=== PATIENT | female | born 1960 | race Caucasian/White ===

== ENCOUNTER → 2017-06-30 | Outpatient (CLI) | payer OTHER ==
[~2017-06-30] MED LIST: AMX500 PO; CARB200T
[2017-06-30 11:01] LABS: ALT/SGPT 27 U/L (12-78); AST/SGOT 13 U/L (15-37); BLOOD UREA NITROGEN 9 mg/dl (7-18); BUN/CREATININE RATIO 12.6 (10-20); CALCIUM 9.2 mg/dl (8.5-10.1); CARBON DIOXIDE 27 mmol/L (21-32); CHLORIDE 103 mmol/L (98-107); CREATININE 0.68 mg/dl (0.60-1.20); GLUCOSE 219 mg/dl (70-99); POTASSIUM 4.1 mmol/L (3.5-5.1); SODIUM 136 mmol/L (136-145)
[2017-06-30 11:02] LABS: HEMATOCRIT 42.7 % (37-47); MEAN CELL VOLUME 84.2 fL (80-100); MEAN CORPUSCULAR HEMOGLOBIN 28.8 pg (25-34); MEAN CORPUSCULAR HGB CONC 34.2 g/dl (32-36); PLATELET COUNT 365 K/uL (130-400); RED BLOOD COUNT 5.07 M/uL (4.2-5.4); WHITE BLOOD COUNT 9.48 K/uL (4.8-10.8)
[2017-06-30 11:03] LABS: ALB/GLOB RATIO 0.8 (0.9-2); ALKALINE PHOSPHATASE 87 U/L (45-117)
[2017-06-30 12:28] LABS: BASO ABS # 0.09 K/uL (0-0.2); BASOPHIL % 0.9 %; COMPLETE YES; EOSINOPHIL % 0.9 %; LYMPHOCYTE % 21.1 %; NEUTROPHILS % 70.1 %
== END | disposition home or self-care (01) ==
LOC: C.LAB1850 09:24
PROVIDERS: ATTEND Psychiatry & Neurology Neurology
DX: G40.909 Epilepsy, unspecified, not intractable, without status epilepticus (principal)

== ENCOUNTER → 2018-01-26 | Outpatient (CLI) | payer OTHER ==
[2018-01-26 14:37] LABS: HEMOGLOBIN 14.5 g/dL (12.0-16.0)
[2018-01-26 14:47] LABS: ALBUMIN 3.7 gm/dl (3.4-5.0); ALT/SGPT 28 U/L (12-78); AST/SGOT 7 U/L (15-37); BLOOD UREA NITROGEN 11 mg/dl (7-18); CALCIUM 9.3 mg/dl (8.5-10.1); CARBON DIOXIDE 29 mmol/L (21-32); CREATININE 0.72 mg/dl (0.60-1.20); GLUCOSE 324 mg/dl (70-99); POTASSIUM 4.1 mmol/L (3.5-5.1); SODIUM 132 mmol/L (136-145)
[2018-01-26 14:50] LABS: CHOLESTEROL 204 mg/dl (0-200); LDL CHOLESTEROL CALCULATED 102 mg/dl; TOTAL PROTEIN 8.1 gm/dl (6.4-8.2)
[2018-01-26 15:07] LABS: ALKALINE PHOSPHATASE 101 U/L (45-117)
[2018-01-26 15:57] LABS: CREATININE RANDOM URINE 58.6 mg/dl
[2018-01-27 06:28] LABS: HEMOGLOBIN A1C 12.9 % (4.5-5.6)
== END | disposition home or self-care (01) ==
LOC: C.LAB1850 12:42
PROVIDERS: ATTEND Nurse Practitioner Adult Health
DX: E11.9 Type 2 diabetes mellitus without complications (principal); E78.5 Hyperlipidemia, unspecified; E66.9 Obesity, unspecified

== ENCOUNTER 2024-01-19 11:49 | Observation (INO) ==
[2024-01-19 12:34] LABS: Basophils # (auto) 0.05 K/uL (0.00-0.20); Basophils % (auto) 0.5 %; Eosinophils # (auto) 0.11 K/uL (0.00-0.50); Hematocrit (blood only) 43.2 % (37.0-47.0); Hemoglobin 14.1 g/dl (12.0-16.0); Immature Granulocytes # (auto) 0.05 K/uL (0.01-0.20); Immature Granulocytes % (auto) 0.5 %; Lymphocytes # (auto) 2.12 K/uL (1.20-3.40); Lymphocytes % (auto) 19.8 %; Mean Corpuscular Hemoglobin 28.5 pg (25.0-34.0); Mean Corpuscular Hgb Conc 32.6 g/dL (32.0-36.0); Mean Corpuscular Volume 87.4 fL (80.0-100.0); Mean Platelet Volume 10.5 fL (9.4-12.4); Monocytes # (auto) 0.66 K/uL (0.11-0.59); Monocytes % (auto) 6.2 %; Neutrophils # (auto) 7.72 K/uL (1.40-6.50); Platelet Count 363 K/uL (130-400); RDW Coefficient of Variation 12.2 % (11.5-14.5); Red Blood Count 4.94 M/uL (4.20-5.40); White Blood Count 10.71 K/ul (4.8-10.8)
--- NOTE | 2024-01-19 12:52 | CT Scan Report ---
CT head/brain wo con CLINICAL HISTORY: 63 years-old Female with HTN, ANDERSON, ?Stroke like symptoms. Acute headache with strok elike symptoms TECHNIQUE: Multiple axial CT images of the head were obtained without contrast. A dose lowering tech nique was utilized adhering to the principles of ALARA. CT DOSE: 547.75 mGy.cm COMPARISON: 11/13/2006 FINDINGS: No acute intracranial hemorrhage, midline shift, intracranial mass, hydrocephalus, territorial ischem ia or abnormal extra-axial collection. Mild involutional changes with white matter hypodensities sugg estive of chronic microvascular ischemic disease. The calvarium is intact. Hyperostosis frontalis interna. The paranasal sinuses, mastoid air cells, an d middle ear cavities are clear. IMPRESSION: No acute intracranial abnormality. ACT 112: Negative or not required by law. The above report was generated using voice recognition software. It may contain grammatical, syntax o r spelling errors. Electronically signed by: Brown Deng M.D. 01/19/2024 12:51 PM
--- NOTE | 2024-01-19 12:58 | XRay Report ---
XR chest 1V portable HISTORY: Hypertension. COMPARISON: None. FINDINGS: There are low lung volumes. The cardiac silhouette is borderline enlarged. Left basilar andreas ear densities favor subsegmental atelectasis or scarring. Otherwise, the lungs are clear. No evidence for pulmonary edema. No acute fractures. IMPRESSION: No acute process. ACT 112: Negative or not required by law. Electronically signed by: Rufus France M.D. 01/19/2024 12:56 PM
[2024-01-19 13:01] LABS: Albumin Globulin Ratio 1.2 (0.9-2); Albumin Level 4.2 gm/dl (3.4-5.0); BUN Creatinine Ratio 18.6 (10-20); Bilirubin,Total 0.3 mg/dl (0.2-1.0); Calcium 9.4 mg/dl (8.6-10.3); Creatinine Clr Calc Pharmacy 100.5 ml/min; Est GFR (African American) 107.6 ml/min; Est GFR (Non-African American) 92.9 ml/min; Globulin 3.5 gm/dl (2.5-4.0); INR 0.9 (0.9-1.1); Partial Thromboplastin Ratio 0.9; Partial Thromboplastin Time 25 Seconds (21-31); Potassium 4.5 mmol/L (3.5-5.1); Prothrombin Time 10.3 Seconds (9.0-12.0); Total Protein 7.7 gm/dl (6.0-8.3)
--- NOTE | 2024-01-19 14:04 | Emergency Department Note ---
Impression & Plan Stroke-like symptoms ED Provider Note NAME: PEACE ENAMORADO AGE: 63 SEX: Female INFORMANT: Patient ED PROVIDER(S): John Santamaria MD CHIEF COMPLAINT: Strokelike symptoms PLAN: Disposition: Admitted Outpatient prescription management: none Referral: None MEDICAL DECISION MAKING: Patient presented because of strokelike symptoms. Workup was initiated. Head CT and laboratory testing was unremarkable. ECG was normal. Patient had subtle findings on examination. CT angiography of the head and neck was also performed. This too was negative. Patient's blood pressure was moderately elevated but then did improve. Patient was given aspirin. She will need further management in the hospital to further elucidate the etiology of the strokelike symptoms. Patient is not within the window for thrombolytic consideration. MR imaging was ordered with and without contrast. Consultation was made with Dr. Paul Sams of the [facility] service. Patient was evaluated in the ER for further management. Care/management discussed with: hardware manager Level of care consideration(s): After review of the information above and other included data, I feel the patient requires escalation of care to admission Triage Nursing notes: reviewed and agree them. Vital Signs: reviewed and remarkable for hypertension Additional History obtained from: none Chronic Medical/Social Conditions affecting care: Diabetes Prior/ Outside/ External records reviewed: none Differential Diagnosis: CVA, TIA,Infection, dehydration, metabolic abnormality, hypo/hyperglycemia, electrolyte disturbance, anemia, hypoxia, cardiac sources, intracerebral event, toxicologic, neurologic, as well as other pathologies. Diagnostics, independently interpreted by me: ECG: Twelve-lead ECG reveals a normal sinus rhythm at [address] elevation or depression. No PACs or PVCs. Cardiac Monitoring: Cardiac monitoring ordered by me: The patient was placed on continuous cardiac monitoring and observed. It revealed a normal sinus rhythm at 81 beats per minute without ectopy or evidence of dysrhythmia. Medical decision rules: none Imaging studies: Head CT: A noncontrast CT scan of the head was performed and was negative for tumor, fracture, intracranial hemorrhage, or other acute pathology. Chest x-ray. Findings: A chest x-ray was performed and revealed no pneumothorax, effusion, infiltrate, pulmonary edema, free air under the diaphragm, or wide mediastinum. Impression: No acute disease.I refer you to the EMR for further details. HPI: 63 year old Female arrives for evaluation of stroke like symptoms. This started yesterday and is worsening today. The patient also notes the following associated symptoms, fogginess, difficulty speaking, dexterity problems with typing and writing. Patient states she was unable to type on a keyboard today and also noted that writing was extremely difficult. The patient has taken no medication for relieving factors. Current pain is rated as 0/10. Pt denies LOC, headache, fevers, chills, diaphoresis, visual changes, neck pain, chest pain, breathing difficulties, nausea, vomiting, abdominal pain, back pain, melena, hematochezia, urinary symptoms, numbness, weakness, lymphadenopathy, rash, or other complaints. . PAST MEDICAL HISTORY: See Below, DM PAST SURGICAL HISTORY: See Below, SOCIAL HISTORY: See Below, no smoking HOME MEDICATIONS: See Below ALLERGIES: See Below VITALS: See Below PHYSICAL EXAMINATION: GENERAL: Awake, alert, well-appearing, in no distress HENT: Normocephalic, atraumatic. Oropharynx unremarkable. EYES: Normal conjunctiva. Sclera non-icteric. NECK: Inspection normal. Non-tender. Supple. No nuchal rigidity. FROM. No masses. RESPIRATORY: Clear to auscultation. No wheezes. No rales. Normal respiratory effort. CARDIAC: Normal rate. Normal rhythm. No murmurs. No rubs. Extremities warm and well perfused. Pulses equal. No JVD. GI: Soft, non-distended. No tenderness to palpation. No rebound or guarding. No masses. RECTAL: Deferred. MUSCULOSKELETAL: Atraumatic. Chest examination reveals no tenderness. The back is symmetrical on inspection without obvious abnormality. There is no CVA tenderness to palpation. No joint edema. LOWER EXTREMITIES: Calves are equal size bilaterally and non-tender. No edema. No discoloration. NEURO: Normal sensorium. No sensory or motor deficits noted. SKIN: No rash or jaundice noted. PROCEDURES: none CRITICAL CARE: none OBSERVATION NOTE: none Past Med/Surg History Medical History (Updated 01/19/24 @ 14:04 by John Santamaria MD) Complex renal cyst US [address] 07/2020, CT Renal ordered 05/2023. No change. no further testing Gastritis Chronic back pain MID/LEFT BACK PAIN Cyst FOUND ON KIDNEY (RECENT FINDING) History of skin cancer History of herpes zoster Hyperlipidemia Seizure disorder EPILEPSY-LAST EVENT OVER 16 YEARS AGO Surgical History History of anesthesia reaction WITH HOLGER>DIFFICULTY BREATHING RESULTING IN A PANIC ATTACK History of tooth extraction Hx of tonsillectomy History of cholecystectomy Family History Father Prostate cancer Family history of diabetes mellitus Mother Family history of diabetes mellitus Other No significant family history Denies family history of Ovarian cancer Myocardial infarction Breast cancer Colorectal cancer Social History Smoking Status: Never smoker Second Hand Exposure: No; Do You Dip or Chew Tobacco: No; Hx Alcohol Use: Yes Alcohol type: wine Alcohol Intake Frequency Comment: Occasional Hx Substance Use: No Preferred Language: Gambian Visual Impairment: Diminished Hearing Ability: Normal 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 Beliefs That Will Affect Care: None marital status: marrried Current Living Situation: Spouse current occupational status: employed How many Children do You have: 2 Feels Safe at Home: Yes Childhood Exposure to Second-Hand Smoke: No caffeine: Yes Dental Care, Regularly: Yes Physical Activity Frequency: 5-6 Times per Week Seatbelt Use: always Sunscreen Use: Yes Assistive Devices: Glasses Allergies Allergies Allergy/AdvReac Type Severity Reaction Status Date / Time No Known Allergies Allergy Mild Verified 01/19/24 13:31 Home Meds Home Medications Medication Instructions Recorded Confirmed cyanocobalamin (vitamin B-12) 1,000 mcg PO DAILY #30 tabs 09/09/19 01/19/24 1,000 mcg tablet,extended release acetaminophen 325 mg tablet 650 mg PO QID PRN Pain 08/02/20 01/19/24 (Tylenol) cholecalciferol (vitamin D3) 125 125 mcg PO DAILY 01/01/22 01/19/24 mcg (5,000 unit) capsule blood sugar diagnostic ([email or web address] #10 ea 01/07/23 05/14/23 Ultra Blue Test Strip) flash glucose sensor (FreeStyle 01/07/23 05/14/23 Brianda 2 Sensor kit) lancets 33 gauge (OneTouch Delica 01/07/23 05/14/23 Lancets) dulaglutide 4.5 mg/0.5 mL 4.5 mg subcut WK 01/19/24 01/19/24 subcutaneous pen injector (Trulicity) insulin aspart U-100 100 unit/mL 0 sliding scale dose subcut TIDM 01/19/24 01/19/24 (3 mL) subcutaneous pen (Novolog FlexPen U-100 Insulin aspart) Previous Rx's Medication Instructions Recorded pen needle, diabetic 32 gauge x #400 ea 08/12/22 1/4" (Novofine 32) carbamazepine 200 mg 200 mg PO BID #180 caps 01/26/23 capsule,extended release [id number] metformin 1,000 mg tablet 1,000 mg PO BID #180 tabs 07/28/23 insulin glargine U-300 conc 300 54 unit (0.18 mL) subcut DAILY #6 08/11/23 unit/mL (3 mL) subcutaneous pen mL (Toujeo Max U-300 SoloStar) simvastatin 40 mg tablet 40 mg PO DAILY #30 tabs 11/28/23 Results & Data (ED) Vital Signs Vital Signs - 24 hr 01/19/24 12:00 01/19/24 12:06 01/19/24 12:34 Temperature 36.7 C Temperature Source Oral Pulse Rate 90 80 Pulse Rate [Apical] Pulse Rate from SpO2 Sensor Pulse Rhythm Regular Pulse Rhythm [Apical] Pulse Strength Normal Pulse Strength [Apical] Respiratory Rate 18 Respiratory Effort / Characteristics Non-Labored Spontaneous Respiratory Depth Normal Respiratory Pattern Regular Blood Pressure 167/89 H 193/96 H Blood Pressure [Right Arm] Blood Pressure Mean 115 152 Blood Pressure Mean [Right Arm] Blood Pressure Position Lying Pulse Oximetry 98 Oxygen Delivery Method Room Air Sepsis Recent Fever Within 48 Hours No Sepsis New/Unexplained Change in Mental Status No Sepsis Action Taken by Nursing No Action Required 01/19/24 12:34 01/19/24 12:53 01/19/24 13:00 Temperature Temperature Source Pulse Rate 85 Pulse Rate [Apical] 79 Pulse Rate from SpO2 Sensor 84 Pulse Rhythm Pulse Rhythm [Apical] Regular Pulse Strength Pulse Strength [Apical] Normal Respiratory Rate 22 18 Respiratory Effort / Characteristics Non-Labored Spontaneous Respiratory Depth Normal Respiratory Pattern Regular Blood Pressure 157/95 H Blood Pressure [Right Arm] 171/84 H Blood Pressure Mean 124 Blood Pressure Mean [Right Arm] 113 Blood Pressure Position Pulse Oximetry 94 98 Oxygen Delivery Method Room Air Sepsis Recent Fever Within 48 Hours Sepsis New/Unexplained Change in Mental Status Sepsis Action Taken by Nursing 01/19/24 13:00 01/19/24 13:21 01/19/24 13:22 Temperature Temperature Source Pulse Rate 78 79 Pulse Rate [Apical] Pulse Rate from SpO2 Sensor 79 80 Pulse Rhythm Pulse Rhythm [Apical] Pulse Strength Pulse Strength [Apical] Respiratory Rate 22 14 Respiratory Effort / Characteristics Respiratory Depth Respiratory Pattern Blood Pressure 173/90 H Blood Pressure [Right Arm] Blood Pressure Mean 123 Blood Pressure Mean [Right Arm] Blood Pressure Position Pulse Oximetry 95 96 Oxygen Delivery Method Sepsis Recent Fever Within 48 Hours Sepsis New/Unexplained Change in Mental Status Sepsis Action Taken by Nursing 01/19/24 13:22 01/19/24 13:30 01/19/24 13:30 Temperature Temperature Source Pulse Rate 77 80 Pulse Rate [Apical] Pulse Rate from SpO2 Sensor 78 80 Pulse Rhythm Pulse Rhythm [Apical] Pulse Strength Pulse Strength [Apical] Respiratory Rate 14 16 Respiratory Effort / Characteristics Respiratory Depth Respiratory Pattern Blood Pressure 164/87 H Blood Pressure [Right Arm] Blood Pressure Mean 115 Blood Pressure Mean [Right Arm] Blood Pressure Position Pulse Oximetry 94 93 Oxygen Delivery Method Room Air Sepsis Recent Fever Within 48 Hours Sepsis New/Unexplained Change in Mental Status Sepsis Action Taken by Nursing 01/19/24 13:45 01/19/24 14:00 01/19/24 14:01 Temperature Temperature Source Pulse Rate 88 76 Pulse Rate [Apical] Pulse Rate from SpO2 Sensor 86 76 Pulse Rhythm Pulse Rhythm [Apical] Pulse Strength Pulse Strength [Apical] Respiratory Rate 17 22 Respiratory Effort / Characteristics Respiratory Depth Respiratory Pattern Blood Pressure 181/88 H Blood Pressure [Right Arm] Blood Pressure Mean 93 Blood Pressure Mean [Right Arm] Blood Pressure Position Pulse Oximetry 93 95 Oxygen Delivery Method Room Air Room Air Sepsis Recent Fever Within 48 Hours Sepsis New/Unexplained Change in Mental Status Sepsis Action Taken by Nursing 01/19/24 14:01 01/19/24 14:15 01/19/24 14:15 Temperature Temperature Source Pulse Rate 87 84 Pulse Rate [Apical] Pulse Rate from SpO2 Sensor 86 84 Pulse Rhythm Pulse Rhythm [Apical] Pulse Strength Pulse Strength [Apical] Respiratory Rate 14 13 Respiratory Effort / Characteristics Respiratory Depth Respiratory Pattern Blood Pressure 147/73 H Blood Pressure [Right Arm] Blood Pressure Mean 88 Blood Pressure Mean [Right Arm] Blood Pressure Position Pulse Oximetry 97 93 Oxygen Delivery Method Sepsis Recent Fever Within 48 Hours Sepsis New/Unexplained Change in Mental Status Sepsis Action Taken by Nursing 01/19/24 14:30 01/19/24 14:32 01/19/24 14:32 Temperature Temperature Source Pulse Rate 84 79 Pulse Rate [Apical] Pulse Rate from SpO2 Sensor 87 80 Pulse Rhythm Pulse Rhythm [Apical] Pulse Strength Pulse Strength [Apical] Respiratory Rate 23 24 Respiratory Effort / Characteristics Respiratory Depth Respiratory Pattern Blood Pressure 155/70 H Blood Pressure [Right Arm] Blood Pressure Mean 81 Blood Pressure Mean [Right Arm] Blood Pressure Position Pulse Oximetry 97 97 Oxygen Delivery Method Room Air Room Air Sepsis Recent Fever Within 48 Hours Sepsis New/Unexplained Change in Mental Status Sepsis Action Taken by Nursing 01/19/24 14:45 01/19/24 15:00 01/19/24 15:00 Temperature Temperature Source Pulse Rate 82 87 Pulse Rate [Apical] Pulse Rate from SpO2 Sensor 83 87 Pulse Rhythm Pulse Rhythm [Apical] Pulse Strength Pulse Strength [Apical] Respiratory Rate 17 17 Respiratory Effort / Characteristics Respiratory Depth Respiratory Pattern Blood Pressure 153/113 H Blood Pressure [Right Arm] Blood Pressure Mean 119 Blood Pressure Mean [Right Arm] Blood Pressure Position Pulse Oximetry 94 94 Oxygen Delivery Method Room Air Room Air Sepsis Recent Fever Within 48 Hours Sepsis New/Unexplained Change in Mental Status Sepsis Action Taken by Nursing 01/19/24 15:30 01/19/24 15:45 01/19/24 16:00 Temperature Temperature Source Pulse Rate 85 78 Pulse Rate [Apical] Pulse Rate from SpO2 Sensor 86 78 Pulse Rhythm Pulse Rhythm [Apical] Pulse Strength Pulse Strength [Apical] Respiratory Rate 13 15 Respiratory Effort / Characteristics Respiratory Depth Respiratory Pattern Blood Pressure 159/80 H Blood Pressure [Right Arm] Blood Pressure Mean 117 Blood Pressure Mean [Right Arm] Blood Pressure Position Pulse Oximetry 95 94 Oxygen Delivery Method Room Air Sepsis Recent Fever Within 48 Hours Sepsis New/Unexplained Change in Mental Status Sepsis Action Taken by Nursing 01/19/24 16:00 01/19/24 16:15 01/19/24 16:30 Temperature Temperature Source Pulse Rate 86 76 Pulse Rate [Apical] Pulse Rate from SpO2 Sensor 84 78 Pulse Rhythm Pulse Rhythm [Apical] Pulse Strength Pulse Strength [Apical] Respiratory Rate 14 15 Respiratory Effort / Characteristics Respiratory Depth Respiratory Pattern Blood Pressure 182/98 H Blood Pressure [Right Arm] Blood Pressure Mean 120 Blood Pressure Mean [Right Arm] Blood Pressure Position Pulse Oximetry 94 96 Oxygen Delivery Method Room Air Room Air Sepsis Recent Fever Within 48 Hours Sepsis New/Unexplained Change in Mental Status Sepsis Action Taken by Nursing 01/19/24 16:30 01/19/24 16:45 01/19/24 17:00 Temperature Temperature Source Pulse Rate 83 80 Pulse Rate [Apical] Pulse Rate from SpO2 Sensor 82 79 Pulse Rhythm Pulse Rhythm [Apical] Pulse Strength Pulse Strength [Apical] Respiratory Rate 13 17 Respiratory Effort / Characteristics Respiratory Depth Respiratory Pattern Blood Pressure 188/105 H Blood Pressure [Right Arm] Blood Pressure Mean 135 Blood Pressure Mean [Right Arm] Blood Pressure Position Pulse Oximetry 93 97 Oxygen Delivery Method Room Air Room Air Sepsis Recent Fever Within 48 Hours Sepsis New/Unexplained Change in Mental Status Sepsis Action Taken by Nursing 01/19/24 17:00 01/19/24 17:15 Temperature Temperature Source Pulse Rate 77 81 Pulse Rate [Apical] Pulse Rate from SpO2 Sensor Pulse Rhythm Pulse Rhythm [Apical] Pulse Strength Pulse Strength [Apical] Respiratory Rate 18 11 L Respiratory Effort / Characteristics Respiratory Depth Respiratory Pattern Blood Pressure Blood Pressure [Right Arm] Blood Pressure Mean Blood Pressure Mean [Right Arm] Blood Pressure Position Pulse Oximetry Oxygen Delivery Method Sepsis Recent Fever Within 48 Hours Sepsis New/Unexplained Change in Mental Status Sepsis Action Taken by Nursing Laboratory Data 01/19/24 12:10 01/19/24 12:10 Lab Results 01/19/24 Range/Units 12:10 WBC 10.71 (4.8-10.8) K/ul RBC 4.94 (4.20-5.40) M/uL Hgb 14.1 (12.0-16.0) g/dl Hct 43.2 (37.0-47.0) % MCV 87.4 (80.0-100.0) fL MCH 28.5 (25.0-34.0) pg MCHC 32.6 (32.0-36.0) g/dL RDW Std Deviation 39.0 (36.4-46.3) fL RDW Coeff of Bladimir 12.2 (11.5-14.5) % Plt Count 363 (130-400) K/uL MPV 10.5 (9.4-12.4) fL Immature Gran % (Auto) 0.5 % Neut % (Auto) 72.0 % Lymph % (Auto) 19.8 % Calvert % (Auto) 6.2 % Eos % (Auto) 1.0 % Baso % (Auto) 0.5 % Neut # (Auto) 7.72 H (1.40-6.50) K/uL Lymph # (Auto) 2.12 (1.20-3.40) K/uL Calvert # (Auto) 0.66 H (0.11-0.59) K/uL Eos # (Auto) 0.11 (0.00-0.50) K/uL Baso # (Auto) 0.05 (0.00-0.20) K/uL Immature Gran # (Auto) 0.05 (0.01-0.20) K/uL PT 10.3 (9.0-12.0) Seconds INR 0.9 (0.9-1.1) APTT 25 (21-31) Seconds PTT Ratio 0.9 Sodium 137 (136-145) mmol/L Potassium 4.5 (3.5-5.1) mmol/L Chloride 101 (98-107) mmol/L Carbon Dioxide 28 (21-32) mmol/L Anion Gap 8 (3-11) BUN 13 (6-23) mg/dl Creatinine 0.70 (0.6-1.2) mg/dl Est Cr Clr Drug Dosing 100.5 ml/min Est GFR ( Amer) 107.6 ml/min Est GFR (Non-Af Amer) 92.9 ml/min BUN/Creatinine Ratio 18.6 (10-20) Glucose 229 H (70-99(Fasting)) mg/dl Calcium 9.4 (8.6-10.3) mg/dl Total Bilirubin 0.3 (0.2-1.0) mg/dl AST 10 L (13-39) U/L ALT 17 (7-52) U/L Alkaline Phosphatase 79 (34-104) U/L Troponin I High Sens 5.9 (0-14) pg/ml Total Protein 7.7 (6.0-8.3) gm/dl Albumin 4.2 (3.4-5.0) gm/dl Globulin 3.5 (2.5-4.0) gm/dl Albumin/Globulin Ratio 1.2 (0.9-2) Administered Medications Discontinued Medications Aspirin (Aspirin Chew 324 Mg) 324 mg PO NOW STA Stop: 01/19/24 16:12 Last Admin: 01/19/24 16:16 Dose: 324 mg Documented By: MIGUEL Ioversol (Optiray 320 125ml) 116 ml IV ONCE ONE Stop: 01/19/24 14:31 Last Admin: 01/19/24 14:30 Dose: 116 ml Documented By: [facility] Imaging Data Radiologist's Impression: Chest X-Ray 01/19/24 12:09 XR chest 1V portable HISTORY: Hypertension. COMPARISON: None. FINDINGS: There are low lung volumes. The cardiac silhouette is borderline enlarged. Left basilar linear densities favor subsegmental atelectasis or scarring. Otherwise, the lungs are clear. No evidence for pulmonary edema. No acute fractures. IMPRESSION: No acute process. ACT 112: Negative or not required by law. Electronically signed by: Rufus France M.D. 01/19/2024 12:[address] 01/19/24 12:09 CT head/brain wo con CLINICAL HISTORY: 63 years-old Female with HTN, ANDERSON, ?Stroke like symptoms. Acute headache with strokelike symptoms TECHNIQUE: Multiple axial CT images of the head were obtained without contrast. A dose lowering technique was utilized adhering to the principles of ALARA. CT DOSE: 547.75 mGy.cm COMPARISON: 11/13/2006 FINDINGS: No acute intracranial hemorrhage, midline shift, intracranial mass, hydrocephalus, territorial ischemia or abnormal extra-axial collection. Mild involutional changes with white matter hypodensities suggestive of chronic microvascular ischemic disease. The calvarium is intact. Hyperostosis frontalis interna. The paranasal sinuses, mastoid air cells, and middle ear cavities are clear. IMPRESSION: No acute intracranial abnormality. ACT 112: Negative or not required by law. The above report was generated using voice recognition software. It may contain grammatical, syntax or spelling errors. Electronically signed by: Brown Deng M.D. 01/19/2024 12:51 PM Head CTA 01/19/24 14:04 CTA ANGIOGRAPHY OF THE HEAD CLINICAL HISTORY: stroke like symptoms COMPARISON STUDY: Head CT November 13, 2006. TECHNIQUE: Helical axial images of the head were obtained following uneventful intravenous administration of 116 cc of Optiray. Sagittal and coronal reconstructions were viewed as well as maximal intensity projections on an independent 3-D workstation. Automated exposure control was utilized for the study. A dose lowering technique was utilized adhering to the principles of ALARA. CT DOSE: 545.63 mGy.cm FINDINGS: No acute intracranial hemorrhage is identified. The ventricular system is unremarkable. Basal cisterns are patent. There are no extra axial collections. The bilateral M1, M2, A1 and A2 segments are patent. No intracranial aneurysm. No vessel occlusion is present. Posterior circulation is intact. IMPRESSION: No central vessel occlusion. No intracranial aneurysm. ACT 112: Negative or not required by law. Electronically signed by: Piyush Rodriguez M.D. 01/19/2024 2:51 PM Neck CTA 01/19/24 14:04 NECK CTA HISTORY: stroke like symptoms TECHNIQUE: Multiaxial CT images of the neck were performed following the intravenous administration of contrast to evaluate the major cervical vessels. 3D/MIP images were also obtained. Sagittal and coronal reformats were reviewed. All measurements were calculated based on NASCET criteria. A dose lowering technique was utilized adhering to the principles of ALARA. COMPARISON STUDY: None. FINDINGS: The aortic arch and proximal great vessels are widely patent. There is no significant stenosis, occlusion, or dissection identified within the bilateral common carotid, internal carotid, or vertebral arteries. Mild calcified plaque within the left carotid bulb. IMPRESSION: No significant stenosis, occlusion, or dissection identified within the carotid or vertebral arteries. ACT 112: Negative or not required by law. Electronically signed by: Rufus France M.D. 01/19/2024 3:11 PM Discharge Plan Visit Data Chief Complaint: Hypertension Stated Complaint: HEADACHE ED Provider: John Santamaria Discharge Problem: Stroke-like symptoms Forms Stand Alone Forms: [facility] Prescriptions Prescriptions: No Action (DME) pen needle, diabetic [Novofine 32] 32 gauge x 1/4" needle See Dose Instructions .ROUTE .MEDSUPPLY Qty: 400 3RF Rx Instructions: Use four times daily metformin 1,000 mg tablet 1,000 mg PO BID Qty: 180 3RF Toujeo Max U-300 SoloStar 300 unit/mL (3 mL) insulin pen 54 unit subcut DAILY Qty: 6 5RF simvastatin 40 mg tablet 40 mg PO DAILY Qty: 30 5RF carbamazepine 200 mg capsule, ER multiphase 12 hr 200 mg PO BID Qty: 180 3RF cholecalciferol (vitamin D3) 125 mcg (5,000 unit) capsule 125 mcg PO DAILY cyanocobalamin (vitamin B-12) 1,000 mcg tablet extended release 1,000 mcg PO DAILY Qty: 30 (DME) OneTouch Ultra Blue Test Strip Strip See Rx Instructions .ROUTE .MEDSUPPLY Qty: 10 Rx Instructions: Test blood sugar once daily PRN (DME) FreeStyle Brianda 2 Sensor Kit See Rx Instructions .Route Rx Instructions: Change sensor every 14 days (DME) lancets [OneTouch Delica Lancets] 33 gauge misc See Rx Instructions .ROUTE .MEDSUPPLY Rx Instructions: Test blood sugar once daily PRN acetaminophen [Tylenol] 325 mg Tablet 650 mg PO QID PRN (Reason: Pain) insulin aspart U-100 [Novolog FlexPen U-100 Insulin] 100 unit/mL (3 mL) insulin pen 0 sliding scale dose SQ TIDM MDD 75 UNITS/24 HOURS. Rx Instructions: 75 units subcut inject daily with meals per sliding scale up to TDD 75 units; Trulicity 4.5 mg/0.5 mL pen injector 4.5 mg subcut WK Rx Instructions: MONDAYS Referrals Referrals: Mikael Harrington DO [Primary Care Provider] -
[2024-01-19] MEDS: OPTIRAY 320 125ml IV ONE (14:30)
[2024-01-19 14:51] LABS: Troponin I High Sensitivity 5.9 pg/ml (0-14)
--- NOTE | 2024-01-19 14:53 | CT Scan Report ---
CTA ANGIOGRAPHY OF THE HEAD CLINICAL HISTORY: stroke like symptoms COMPARISON STUDY: Head CT November 13, 2006. TECHNIQUE: Helical axial images of the head were obtained following uneventful intravenous administr ation of 116 cc of Optiray. Sagittal and coronal reconstructions were viewed as well as maximal inten sity projections on an independent 3-D workstation. Automated exposure control was utilized for the study. A dose lowering technique was utilized adhering to the principles of ALARA. CT DOSE: 545.63 mGy.cm FINDINGS: No acute intracranial hemorrhage is identified. The ventricular system is unremarkable. Bas al cisterns are patent. There are no extra axial collections. The bilateral M1, M2, A1 and A2 segment s are patent. No intracranial aneurysm. No vessel occlusion is present. Posterior circulation is inta ct. IMPRESSION: No central vessel occlusion. No intracranial aneurysm. ACT 112: Negative or not required by law. Electronically signed by: Piyush Rodriguez M.D. 01/19/2024 2:51 PM
--- NOTE | 2024-01-19 15:12 | CT Scan Report ---
NECK CTA HISTORY: stroke like symptoms TECHNIQUE: Multiaxial CT images of the neck were performed following the intravenous administration o f contrast to evaluate the major cervical vessels. 3D/MIP images were also obtained. Sagittal and cor onal reformats were reviewed. All measurements were calculated based on NASCET criteria. A dose low ering technique was utilized adhering to the principles of ALARA. COMPARISON STUDY: None. FINDINGS: The aortic arch and proximal great vessels are widely patent. There is no significant sten osis, occlusion, or dissection identified within the bilateral common carotid, internal carotid, or v ertebral arteries. Mild calcified plaque within the left carotid bulb. IMPRESSION: No significant stenosis, occlusion, or dissection identified within the carotid or vertebral arteries . ACT 112: Negative or not required by law. Electronically signed by: Rufus France M.D. 01/19/2024 3:11 PM
[2024-01-19] MEDS: ASPIRIN CHEW 324 MG PO STA (16:16)
--- NOTE | 2024-01-19 16:25 | History & Physical Report ---
Date of Service January 19, 2024 Assessment & Plan (1) Stroke-like symptoms: Plan: Patient developed decreased finger dexterity, increased fatigue, and difficulty with speech on the morning of 01/17; symptoms have not improved in the past 24 hours No facial droop or unilateral deficits appreciated Given timeline of symptoms, outside the window for TNKase No prior history of stroke, migraines, or MS Head CT revealed no acute intracranial abnormality Head/neck CTA revealed no acute findings Brain MRI with/without revealed a small foci in the left whaley radiata concerning for acute or subacute infarct Echocardiogram with bubble study ordered, pending Permissive HTN, but given more than 24 hours out, will put on for labetalol 5 mg IV q10m as needed for SBP>180 or DBP>120 Per nursing staff, patient passed dysphagia screen at the bedside, okay to advance diet Fall precautions Neurochecks every 4 hours Stroke scale QS Speech therapy eval given paused speech and difficulty with word processing Aspirin 81 mg p.o. daily and Plavix 75 mg p.o. daily x 3 weeks Will change simvastatin 40 mg p.o. --> atorvastatin 40 mg p.o. daily PT/OT consulted Neurology consulted A.m. CBC, BMP, A1c, lipid fasting panel (2) Controlled type 2 diabetes mellitus, with long-term current use of insulin: Plan: Last A1c at 7.5% on 08/22/2022 Glucose 229 on admission Hold metformin, Trulicity Patient is normally on 54 units daily of insulin glargine Recommend Lantus 15 units twice daily SSI; with target BSG range 110-140mg/dL, CF 40, carb ratio 13 T2DM diet BSG ACHS Adjust regimen as needed (3) Seizure disorder: Plan: Epilepsy with last known instance 25 years ago, per patient (4) Hyperlipidemia: Plan: Simvastatin --> atorvastatin (as above) Follow fasting lipid panel Plan Disposition: Admit to PCU telemetry Full code Patient passed dysphagia screen at the bedside, okay to advance to T2DM diet VTE PPx: SCDs (hold chemical DVT PPx for 24 hours in setting of acute to subacute stroke) Recommend ASA 81mg + Plavix 75mg x 3 weeks History of Present Illness Chief Complaint: Hypertension Primary Care Provider: Mikael Harrington DO Sissy is a 63-year-old female with PMH of T2DM, HLD, seizure disorder, and postherpetic neuralgia. She presented on 01/18 for strokelike symptoms that developed the morning of 01/17 and worsened on 01/18. Patient notes that she woke up on 01/17 feeling extremely tired, and needed to go back to bed. When she got up and went to work she had difficulty saying words (she does note that she could think of the words, but could not get them out). At work, she had difficulty typing on her keyboard, and notes that she would type the wrong words or letters. She denies any facial droop, but noted slurred speech and difficulty getting words out. There has been no change in this over the past 24 hours. She denies any changes in vision, blurry vision, diplopia, photophobia. No unilateral deficits. No falls. No recent injuries to the head or neck. She notes she has had a brain fog, as if she has had "3 glasses of wine". No headache. No history of stroke, MS, or migraines. No family history of MS. Family history of stroke; father (87yo) x 2. No sick contacts. Patient wears reading glasses. She reports that she took all of her regular morning medications, but she does take insulin in the evenings and she has not had it at the time of admission. Patient is hypertensive at 159/80 at time of admission; vitals otherwise stable. ED course: Aspirin 324 mg p.o. ROS: Patient endorses brain fog, increased fatigue, decreased dexterity, and expressive aphasia. Patient denies fever, chills, nightsweats, dizziness/lightheadedness with walking, ANDERSON, injuries to the head or neck, facial droop, unilateral deficits or numbness/tingling in extremities, changes in vision (such as diplopia, loss of vision, or photophobia), chest pain, chest palpitations, cough, SOB, abdominal pain, N/V/D, urinary s/s, burning with urination, or pain/numbness/tingling in the arms or legs. Allergies Allergy/AdvReac Type Severity Reaction Status Date / Time No Known Allergies Allergy Mild Verified 01/19/24 13:31 Home Medications Medication Instructions Recorded Confirmed Type cyanocobalamin (vitamin B-12) 1,000 mcg PO DAILY #30 tabs 09/09/19 01/19/24 History 1,000 mcg tablet,extended release acetaminophen 325 mg tablet 650 mg PO QID PRN Pain 08/02/20 01/19/24 History (Tylenol) cholecalciferol (vitamin D3) 125 125 mcg PO DAILY 01/01/22 01/19/24 History mcg (5,000 unit) capsule pen needle, diabetic 32 gauge x #400 ea 08/12/22 05/14/23 Rx 1/4" (Novofine 32) blood sugar diagnostic (OneTouch #10 ea 01/07/23 05/14/23 History Ultra Blue Test Strip) flash glucose sensor (FreeStyle 01/07/23 05/14/23 History Brianda 2 Sensor kit) lancets 33 gauge (OneTouch Delica 01/07/23 05/14/23 History Lancets) carbamazepine 200 mg 200 mg PO BID #180 caps 01/26/23 01/19/24 Rx capsule,extended release [id number] metformin 1,000 mg tablet 1,000 mg PO BID #180 tabs 07/28/23 01/19/24 Rx insulin glargine U-300 conc 300 54 unit (0.18 mL) subcut DAILY #6 08/11/23 01/19/24 Rx unit/mL (3 mL) subcutaneous pen mL (Toujeo Max U-300 SoloStar) simvastatin 40 mg tablet 40 mg PO DAILY #30 tabs 11/28/23 01/19/24 Rx dulaglutide 4.5 mg/0.5 mL 4.5 mg subcut WK 01/19/24 01/19/24 History subcutaneous pen injector (Trulicity) insulin aspart U-100 100 unit/mL 0 sliding scale dose subcut TIDM 01/19/24 01/19/24 History (3 mL) subcutaneous pen (Novolog FlexPen U-100 Insulin aspart) Past Med/Surg History Medical History (Updated 01/19/24 @ 14:04 by John Santamaria MD) Complex renal cyst US [address] 07/2020, CT Renal ordered 05/2023. No change. no further testing Gastritis Chronic back pain MID/LEFT BACK PAIN Cyst FOUND ON KIDNEY (RECENT FINDING) History of skin cancer History of herpes zoster Hyperlipidemia Seizure disorder EPILEPSY-LAST EVENT OVER 16 YEARS AGO Surgical History History of anesthesia reaction WITH HOLGER>DIFFICULTY BREATHING RESULTING IN A PANIC ATTACK History of tooth extraction Hx of tonsillectomy History of cholecystectomy Family History Father Prostate cancer Family history of diabetes mellitus Mother Family history of diabetes mellitus Other No significant family history Denies family history of Ovarian cancer Myocardial infarction Breast cancer Colorectal cancer Social History Smoking Status: Never smoker Second Hand Exposure: No; Do You Dip or Chew Tobacco: No; Hx Alcohol Use: Yes Alcohol type: wine Alcohol Intake Frequency Comment: Occasional Hx Substance Use: No Preferred Language: Citizen Of [place] Visual Impairment: Diminished Hearing Ability: Normal Clinical Molecular Geneticist Required: No Beliefs That Will Affect Care: None marital status: marrried Current Living Situation: Spouse current occupational status: employed How many Children do You have: 2 Feels Safe at Home: Yes Childhood Exposure to Second-Hand Smoke: No caffeine: Yes Dental Care, Regularly: Yes Physical Activity Frequency: 5-6 Times per Week Seatbelt Use: always Sunscreen Use: Yes Assistive Devices: Glasses Review of Systems Review of Systems: See HPI above Physical Exam Physical Exam: General: no acute distress; non-toxic appearing; well-nourished; cooperative HEENT: normocephalic, atraumatic; no scleral icterus; PERRLA w/ EOMs intact; moist mucus membrane; vision and hearing grossly intact Neck: supple; no JVD; no lymphadenopathy; trachea midline Skin: warm, dry without signs of tenting; no cyanosis; no rashes, bruising, lesions, or erythema noted CV: chest wall NTP; RRR; S1/S2 normal; no murmurs/rubs/gallops; pulses intact and symmetric at radial, DP, and PT Lungs: no acute respiratory distress; symmetrical chest wall expansion; clear breath sounds across all lung rivas w/o adventitious sounds; no wheezing ABD: Soft, NTP; BS present; no rebound/guarding; no ascites; no distention; negative CVA tenderness MSK: no tics or fasciculations; no edema noted in the LEs b/l, nonerythematous Neuro: A&Ox3; normal mood and affect; fluent speech; no focal deficits; sensation grossly intact in the LEs b/l Results & Data Results & Data Vital Signs (Past 12 Hours) Vital Signs Temp Pulse Pulse Resp BP BP Pulse Ox 01/19/24 16:00 86 14 94 01/19/24 16:00 159/80 H 01/19/24 15:45 78 15 94 01/19/24 15:30 85 13 95 01/19/24 15:00 87 17 94 01/19/24 15:00 153/113 H 01/19/24 14:45 82 17 94 01/19/24 14:32 79 24 97 01/19/24 14:32 155/70 H 01/19/24 14:30 84 23 97 01/19/24 14:15 147/73 H 01/19/24 14:15 84 13 93 01/19/24 14:01 87 14 97 01/19/24 14:01 181/88 H 01/19/24 14:00 76 22 95 01/19/24 13:45 88 17 93 01/19/24 13:30 80 16 93 01/19/24 13:30 164/87 H 01/19/24 13:22 77 14 94 01/19/24 13:22 173/90 H 01/19/24 13:21 79 14 96 01/19/24 13:00 78 22 95 01/19/24 13:00 157/95 H 01/19/24 12:53 79 18 171/84 H 98 01/19/24 12:34 85 22 94 01/19/24 12:34 193/96 H 01/19/24 12:06 80 01/19/24 12:00 36.7 C 90 18 167/89 H 98 O2 Del Method 01/19/24 16:00 Room Air 01/19/24 16:00 01/19/24 15:45 01/19/24 15:30 Room Air 01/19/24 15:00 Room Air 01/19/24 15:00 01/19/24 14:45 Room Air 01/19/24 14:32 Room Air 01/19/24 14:32 01/19/24 14:30 Room Air 01/19/24 14:15 01/19/24 14:15 01/19/24 14:01 01/19/24 14:01 01/19/24 14:00 Room Air 01/19/24 13:45 Room Air 01/19/24 13:30 Room Air 01/19/24 13:30 01/19/24 13:22 01/19/24 13:22 01/19/24 13:21 01/19/24 13:00 01/19/24 13:00 01/19/24 12:53 Room Air 01/19/24 12:34 01/19/24 12:34 01/19/24 12:06 01/19/24 12:00 Room Air Laboratory Results Abnormal lab results 01/19/24 Range/Units 12:10 Neut # (Auto) 7.72 H (1.40-6.50) K/uL [place] # (Auto) 0.66 H (0.11-0.59) K/uL Glucose 229 H (70-99(Fasting)) mg/dl AST 10 L (13-39) U/L Diagnostic Findings Chest X-Ray 01/19/24 12:09 XR chest 1V portable HISTORY: Hypertension. COMPARISON: None. FINDINGS: There are low lung volumes. The cardiac silhouette is borderline enlarged. Left basilar linear densities favor subsegmental atelectasis or scarring. Otherwise, the lungs are clear. No evidence for pulmonary edema. No acute fractures. IMPRESSION: No acute process. ACT 112: Negative or not required by law. Electronically signed by: Rufus France M.D. 01/19/2024 12:[address] 01/19/24 12:09 CT head/brain wo con CLINICAL HISTORY: 63 years-old Female with HTN, ANDERSON, ?Stroke like symptoms. Acute headache with strokelike symptoms TECHNIQUE: Multiple axial CT images of the head were obtained without contrast. A dose lowering technique was utilized adhering to the principles of ALARA. CT DOSE: 547.75 mGy.cm COMPARISON: 11/13/2006 FINDINGS: No acute intracranial hemorrhage, midline shift, intracranial mass, hydrocephalus, territorial ischemia or abnormal extra-axial collection. Mild involutional changes with white matter hypodensities suggestive of chronic microvascular ischemic disease. The calvarium is intact. Hyperostosis frontalis interna. The paranasal sinuses, mastoid air cells, and middle ear cavities are clear. IMPRESSION: No acute intracranial abnormality. ACT 112: Negative or not required by law. The above report was generated using voice recognition software. It may contain grammatical, syntax or spelling errors. Electronically signed by: Brown Deng M.D. 01/19/2024 12:51 PM Head CTA 01/19/24 14:04 CTA ANGIOGRAPHY OF THE HEAD CLINICAL HISTORY: stroke like symptoms COMPARISON STUDY: Head CT November 13, 2006. TECHNIQUE: Helical axial images of the head were obtained following uneventful intravenous administration of 116 cc of Optiray. Sagittal and coronal reconstructions were viewed as well as maximal intensity projections on an independent 3-D workstation. Automated exposure control was utilized for the study. A dose lowering technique was utilized adhering to the principles of ALARA. CT DOSE: 545.63 mGy.cm FINDINGS: No acute intracranial hemorrhage is identified. The ventricular system is unremarkable. Basal cisterns are patent. There are no extra axial collectio ns. The bilateral M1, M2, A1 and A2 segments are patent. No intracranial aneurysm. No vessel occlusion is present. Posterior circulation is intact. IMPRESSION: No central vessel occlusion. No intracranial aneurysm. ACT 112: Negative or not required by law. Electronically signed by: Piyush Rodriguez M.D. 01/19/2024 2:51 PM Neck CTA 01/19/24 14:04 NECK CTA HISTORY: stroke like symptoms TECHNIQUE: Multiaxial CT images of the neck were performed following the intravenous administration of contrast to evaluate the major cervical vessels. 3D/MIP images were also obtained. Sagittal and coronal reformats were reviewed. All measurements were calculated based on NASCET criteria. A dose lowering technique was utilized adhering to the principles of ALARA. COMPARISON STUDY: None. FINDINGS: The aortic arch and proximal great vessels are widely patent. There is no significant stenosis, occlusion, or dissection identified within the bilateral common carotid, internal carotid, or vertebral arteries. Mild calcified plaque within the left carotid bulb. IMPRESSION: No significant stenosis, occlusion, or dissection identified within the carotid or vertebral arteries. ACT 112: Negative or not required by law. Electronically signed by: Rufus France M.D. 01/19/2024 3:11 PM Code Status & VTE Plan Code Status Full code VTE Prophylaxis Plan VTE Prophylaxis will be ordered: Yes Supervising Physician Co-Signing Physician Notes Patient seen and examined, chart reviewed, case discussed with Rufus Holley PA-C and I agree with the assessment and plan as above except as otherwise noted Labs and images reviewed 61-year-old female with onsets 24-36 hours ago with speech finding difficulty, some dysarthria, and no focal neurologic deficits which have not improved throughout the day. CTA head/neck with no acute findings. No prior history of strokes. Does have history of hyperlipidemia on simvastatin. At bedside ev aluation speech is mostly fluent but patient does have some slight delay with word finding and very subtle dysarthria and slightly abnormal prosody. Distal extremity strength and sensation are intact. Pupils equal reactive light accommodation. EOM intact nystagmus. Stat MRI obtained, this is consistent with a left whaley radiata subacute small stroke. Recommend dual antiplatelet therapy for 3 weeks followed by monotherapy. Lipid panel pending, statin increased to atorvastatin 40 mg, depending on lipid panel may increase to 80. As her symptoms were more than 24 hours out do not recommend permissive hypertension to 220 at this time, will decrease blood pressure control goal to 180. Agree with assessment and management above PG Care Time/CCT Total # of Minutes Spent Total Time Spent with Patient: Total time spent is greater than 50% in coordination of care (as documented) at patient's floor/unit and/or counseling patient: Coding [place] [address] INT INP/OBS CARE 3/75MIN Patient Type Established History Comprehensive Exam Comprehensive Medical Decision Making High Complexity Diagnoses Stroke-like symptoms R29.90 Controlled type 2 diabetes mellitus, with long-term current use of insulin E11.9; Z79.4 Seizure disorder G40.909 Hyperlipidemia E78.5
[2024-01-19] MEDS ORDERED: PHARMACIST DISCHARGE MED REC CONSULT PRN (17:01)
[2024-01-19] MEDS ORDERED: GLUCOSE 40% GEL 15 GM TUBE PO PRN (19:26)
[2024-01-19] MEDS ORDERED: DEXTROSE 50% 50 ML SYRINGE IV PRN (19:26)
[2024-01-19] MEDS ORDERED: GLUCAGON FOR INJ 1 MG VIAL SQ PRN (19:26)
[2024-01-19] MEDS ORDERED: GLUCOSE 10 TAB/TUBE PO PRN (19:26)
[2024-01-19] MEDS ORDERED: CARBOHYDRATES FOR HYPOGLYCEMIA PO PRN (19:26)
--- NOTE | 2024-01-19 19:39 | Magnetic Resonance Report ---
Exam(s): MRI HEAD W/WO Contrast IV Amt: 11cc gadavist administered EXAM: MR Head Without and With Intravenous Contrast CLINICAL HISTORY: Reason for exam: Slurred speech, RUE coordination issues, ?MS?CVA. TECHNIQUE: Magnetic resonance images of the head/brain without and with intravenous contrast in multiple planes. CONTRAST: Patient received 11cc gadavist administered of IV contrast COMPARISON: CT head on 01/19/2024 FINDINGS: Brain: Small foci of restricted diffusion in the left whaley radiata, concerning for acute or subacute infarct. Chronic small vessel ischemic disease. No hemorrhage. No abnormal parenchymal enhancement. Ventricles: Mild prominence of the ventricles and sulci is likely secondary to cerebral volume loss. Bones/joints: Mild hyperostosis frontalis interna. No acute fracture. Sinuses: Unremarkable as visualized. No acute sinusitis. Mastoid air cells: Unremarkable as visualized. No mastoid effusion. Orbits: Unremarkable as visualized. IMPRESSION: Small foci of restricted diffusion in the left whaley radiata, concerning for acute or subacute infarct. Communications: Call Doctor Stroke Electronically signed by: Carleen Alonso M.D. 01/19/24 19:38 PM
[2024-01-19] MEDS ORDERED: ACETAMINOPHEN 325 MG TAB PO PRN (21:42)
[2024-01-19] MEDS ORDERED: LABETALOL HCL IV 5 MG/ML 20ML IV PRN (21:42)
[2024-01-19] MEDS: LANTUS PER UNIT CHARGE SQ SCH (22:05)
[2024-01-19] MEDS: INSULIN ASPART PER UNIT CHARGE SC SCH (22:05)
[2024-01-19] MEDS: carBAMazepine XR 200 MG TABCR PO SCH (22:42)
--- NOTE | 2024-01-20 06:15 | Electrocardiogram Report ---
Test Reason : Blood Pressure : / mmHG Vent. Rate : 075 BPM Atrial Rate : 075 BPM P-R Int : 160 ms QRS Dur : 070 ms QT Int : 384 ms P-R-T Axes : 043 -09 016 degrees QTc Int : 428 ms Normal sinus rhythm Possible Left atrial enlargement Minimal voltage criteria for LVH, may be normal variant ( R in aVL ) Borderline ECG When compared with ECG of 11-OCT-2019 00:40, No significant change was found Confirmed by Michael Fenton ([id number]) on 01/20/2024 6:15:17 AM Referred By: REFERRED SELF Confirmed By:Michael Fenton
[2024-01-20] MEDS: ATORVASTATIN 40 MG TAB PO SCH (08:42)
[2024-01-20] MEDS: ASPIRIN 81 MG ECTAB PO SCH (08:42)
[2024-01-20] MEDS: CLOPIDOGREL BISULFATE 75 MG TAB PO SCH (08:42)
[2024-01-20 09:12] LABS: Basophils # (auto) 0.05 K/uL (0.00-0.20); Basophils % (auto) 0.5 %; Hematocrit (blood only) 43.1 % (37.0-47.0); Immature Granulocytes # (auto) 0.04 K/uL (0.01-0.20); Immature Granulocytes % (auto) 0.4 %; Lymphocytes # (auto) 2.25 K/uL (1.20-3.40); Lymphocytes % (auto) 21.5 %; Mean Corpuscular Hemoglobin 28.1 pg (25.0-34.0); Mean Corpuscular Hgb Conc 32.5 g/dL (32.0-36.0); Mean Corpuscular Volume 86.4 fL (80.0-100.0); Mean Platelet Volume 10.2 fL (9.4-12.4); Monocytes # (auto) 0.68 K/uL (0.11-0.59); Monocytes % (auto) 6.5 %; Neutrophils # (auto) 7.33 K/uL (1.40-6.50); Neutrophils % (auto) 70.1 %; Platelet Count 382 K/uL (130-400); RDW Coefficient of Variation 12.2 % (11.5-14.5); RDW Standard Deviation 38.7 fL (36.4-46.3); Red Blood Count 4.99 M/uL (4.20-5.40); White Blood Count 10.45 K/ul (4.8-10.8)
[2024-01-20 09:20] LABS: Estimated Average Glucose 246 mg/dl; Hemoglobin A1C 10.2 % (4.5-5.6)
[2024-01-20 09:31] LABS: BUN Creatinine Ratio 13.8 (10-20); Calcium 9.1 mg/dl (8.6-10.3); Chol HDL Ratio 2.2 (0-5); Creatinine Clr Calc Pharmacy 106.2 ml/min; Est GFR (African American) 110.3 ml/min; Est GFR (Non-African American) 95.2 ml/min; Potassium 3.9 mmol/L (3.5-5.1)
--- NOTE | 2024-01-20 09:38 | Neurology Consultation ---
Date of Consultation January 20, 2024 Assessment & Plan (1) Ischemic stroke: History of Present Illness Attending Physician: Cesia Gill MD History of Present Illness pt this morning feeling much better. speech also much improved. slight dysarthria when trying to speak too fast. no weakness. no imbalance. mri brain showing small subcortical ischemic stroke left near basal ganglia. chart review ed. admission HPI: Sissy is a 63-year-old female with PMH of T2DM, HLD, seizure disorder, and postherpetic neuralgia. She presented on 01/18 for strokelike symptoms that developed the morning of 01/17 and worsened on 01/18. Patient notes that she woke up on 01/17 feeling extremely tired, and needed to go back to bed. When she got up and went to work she had difficulty saying words (she does note that she could think of the words, but could not get them out). At work, she had difficulty typing on her keyboard, and notes that she would type the wrong words or letters. She denies any facial droop, but noted slurred speech and difficulty getting words out. There has been no change in this over the past 24 hours. She denies any changes in vision, blurry vision, diplopia, photophobia. No unilateral deficits. No falls. No recent injuries to the head or neck. She notes she has had a brain fog, as if she has had "3 glasses of wine". No headache. No history of stroke, MS, or migraines. No family history of MS. Family history of stroke; father (87yo) x 2. No sick contacts. Patient wears reading glasses. She reports that she took all of her regular morning medications, but she does take insulin in the evenings and she has not had it at the time of admission. Patient is hypertensive at 159/80 at time of admission; vitals otherwise stable. Allergies Allergy/AdvReac Type Severity Reaction Status Date / Time No Known Allergies Allergy Mild Verified 01/19/24 13:31 Home Medications Medication Instructions Recorded Confirmed Type cyanocobalamin (vitamin B-12) 1,000 mcg PO DAILY #30 tabs 09/09/19 01/19/24 History 1,000 mcg tablet,extended release acetaminophen 325 mg tablet 650 mg PO QID PRN Pain 08/02/20 01/19/24 History (Tylenol) cholecalciferol (vitamin D3) 125 125 mcg PO DAILY 01/01/22 01/19/24 History mcg (5,000 unit) capsule pen needle, diabetic 32 gauge x #400 ea 08/12/22 05/14/23 Rx 1/4" (Novofine 32) blood sugar diagnostic (OneTouch #10 ea 01/07/23 05/14/23 History Ultra Blue Test Strip) flash glucose sensor (FreeStyle 01/07/23 05/14/23 History Brianda 2 Sensor kit) lancets 33 gauge (OneTouch Delica 01/07/23 05/14/23 History Lancets) carbamazepine 200 mg 200 mg PO BID #180 caps 01/26/23 01/19/24 Rx capsule,extended release [id number] metformin 1,000 mg tablet 1,000 mg PO BID #180 tabs 07/28/23 01/19/24 Rx insulin glargine U-300 conc 300 54 unit (0.18 mL) subcut DAILY #6 08/11/23 01/19/24 Rx unit/mL (3 mL) subcutaneous pen mL (Toujeo Max U-300 SoloStar) simvastatin 40 mg tablet 40 mg PO DAILY #30 tabs 11/28/23 01/19/24 Rx dulaglutide 4.5 mg/0.5 mL 4.5 mg subcut WK 01/19/24 01/19/24 History subcutaneous pen injector (Trulicity) insulin aspart U-100 100 unit/mL 0 sliding scale dose subcut TIDM 01/19/24 01/19/24 History (3 mL) subcutaneous pen (Novolog FlexPen U-100 Insulin aspart) Patient History Medical History (Updated 01/20/24 @ 09:44 by John Lara MD) Ischemic stroke Complex renal cyst US [address] 07/2020, CT Renal ordered 05/2023. No change. no further testing Gastritis Chronic back pain MID/LEFT BACK PAIN Cyst FOUND ON KIDNEY (RECENT FINDING) History of skin cancer History of herpes zoster Hyperlipidemia Seizure disorder EPILEPSY-LAST EVENT OVER 16 YEARS AGO Surgical History History of anesthesia reaction WITH HOLGER>DIFFICULTY BREATHING RESULTING IN A PANIC ATTACK History of tooth extraction Hx of tonsillectomy History of cholecystectomy Family History Father Prostate cancer Family history of diabetes mellitus Mother Family history of diabetes mellitus Other No significant family history Denies family history of Ovarian cancer Myocardial infarction Breast cancer Colorectal cancer Social History Smoking Status: Never smoker Second Hand Exposure: No; Do You Dip or Chew Tobacco: No; Hx Alcohol Use: Yes Alcohol type: wine Alcohol Intake Frequency Comment: Occasional Hx Substance Use: No Preferred Language: Martiniquais Communication Ability: Effective Visual Impairment: Diminished Hearing Ability: Normal Denture Waxer Required: No Beliefs That Will Affect Care: None marital status: marrried Current Living Situation: Spouse current occupational status: employed How many Children do You have: 2 Other Information That Helps Us Care for You: No Feels Safe at Home: Yes Safety Concerns: Feels Safe At This Time Childhood Exposure to Second-Hand Smoke: No caffeine: Yes Dental Care, Regularly: Yes Physical Activity Frequency: 5-6 Times per Week Seatbelt Use: always Sunscreen Use: Yes Assistive Devices: Glasses Review of Systems Review of Systems: All systems reviewed & are unremarkable except as noted in Subjective Constitutional: as per Subjective / HPI Eyes: as per Subjective / HPI Ear, Nose, Mouth, Throat: as per Subjective / HPI Respiratory: as per Subjective / HPI Cardiovascular: as per Subjective / HPI Gastrointestinal: as per Subjective / HPI Musculoskeletal: as per Subjective / HPI Integumentary: as per Subjective / HPI Neurologic: as per Subjective / HPI Psychiatric: as per Subjective / HPI Endocrine: as per Subjective / HPI Hematologic / Lymphatic: as per Subjective / HPI Allergy / Immunological: as per Subjective / HPI Exam (Neuro) Physical Exam: HEENT: normocephalic Neuro: Mental: AOx4, fluent speech with very subtle dysarthria at times, normal comprehension, no apraxia, no L/R confusion, no neglect CN: PERRL, Full EOM, symmetric face, intact sensation t/o face, midline T/U/P, 5/5 SCM/traps. Motor: No abnormal movements, normal tone and bulk, 5/5 t/o bilaterally Sens: intact to touch b/l grossly Coord: intact FNT b/l DTR: 2+ sym b/l Gait: intact grossly Impression: 63 yo female with acute ischemic stroke on left deep subcortical area with mild dysarthria without weakness. Recommendations: 2. antiplatelet therapy: * DAPT (dual antiplatelet therapy): start for pts with ABCD2 score 4 or higher. Initial loading dose with ASA 325mg and Plavix 300mg (if pt has not been started), then ASA 81mg daily and Plavix 75mg daily. Continue DAPT for 21 days if found small vessel disease only or continue for 90 days if found to have intracranial large artery atherosclerosis. After that, can continue single antiplatelet therapy (either ASA or Plavix). 3.pending echo report. 4. Permissive Hypertension for next 24 h rs (from time of admission). Keep SBP goal range less than 220. Avoid hypotension. Do not stop beta-akil if on it. 5. If noted for large intracranial vesse l stenosis, slow reduction of BP and allowing permissive HTN next 5-7 days. 6. Long-term SBP goal less than 130. 7. Plenty of hydration including IV flui d if possible (use isotonic solution) next 1-2 days. Avoid hypovolemia and hypotension. 8. Initiate DVT prevention therapy. 9. Avoid hypoglycemia, serum glucose goa l during hospitalization: 140-180. 10. Long-term HgA1c goal less than 7. 11. Start statin if not on it and no abs olute contraindication, long-term LDL goal less than 70. 12. Head of bed up 30 degrees if possibl e. 13. Stroke education by nursing and appr opriate staff. 14. Telemetry monitoring. Consider parts counterman cardiac monitoring, i.e. MCOT (mobile cardiac outpatient telemetry) or ICM (insertable signal worker, e.g. LINQ), if never had parts counterman cardiac monitoring done previously. And if found to have atrial flutter or fibrillation, should consider anticoagulation therapy if no contraindication. 16. speech path evaluation otherwise pt doing well and not much to add from neurology stand point at this point. pt can have routine f/u with Dr. Marcelino in neurology clinic. call again if new question. Chart reviewed I have spent more than 50% educating patient about potential diagnosis and neurological evaluation and coordinating care with patient's treatment team. Total time spent (including chart review and coordination of care): 60 min (this includes chart review). Results & Data Vital Signs (Past 12 Hours) Vital Signs Temp Pulse Resp BP BP Pulse Ox Pulse Ox 03/13/24 07:23 36.5 C 83 20 154/84 H 94 01/20/24 03:51 37.0 C 95 H 18 143/80 H 95 01/19/24 23:05 36.8 C 84 18 144/75 H 94 01/19/24 21:42 95 O2 Del Method O2 Del Method 01/20/24 07:23 Room Air 01/20/24 03:51 Room Air 01/19/24 23:05 Room Air 01/19/24 21:42 Room Air PG Care Time/CCT Total # of Minutes Spent Total Time Spent with Patient: Total time spent is greater than 50% in coordination of care (as documented) at patient's floor/unit and/or counseling patient: Coding Level of Care Code 95137 IN/OBS CONSULT LVL 4,60M Diagnoses Ischemic stroke I63.9
--- NOTE | 2024-01-20 10:08 | Pharmacy Report ---
- Date of Service January 20, 2024 - Pharmacy CVA/TIA Medication Review Medications to Prevent Stroke handout has been added to the patients discharge packet. Antiplatelet(s) * DAPT x21 days then monotherapy * clopidogrel 75mg PO daily Cholesterol * High intensity statin: atorvastatin 40 mg PO daily, increased from moderate intensity simvastatin 40mg DVT Prophylaxis * SCD knee Therapeutic Anticoagulation * No history of Afib/Aflutter noted Type 2 Diabetes * Patient has T2DM and patient is prescribed dulaglutide
[2024-01-20] MEDS: CLOPIDOGREL BISULFATE 75 MG TAB PO ONE (13:00)
--- NOTE | 2024-01-20 16:01 | XCELERA ---
[id number] [id number]
[2024-01-20] MEDS ORDERED: STROKE PATIENT DISCHARGE STA (16:34)
--- NOTE | 2024-01-20 16:37 | Discharge Summary ---
Discharge Summary Date of Service January 20, 2024 Notes For Next Care Provider Needs 30-day event monitor-ordered prior to discharge Medication Changes From Visit Added aspirin 81 mg daily Added Plavix 75 mg daily times total 21 days then stop Added atorvastatin 40 mg daily Stop simvastatin Admission HPI Per Admitting Provider Sissy is a 63-year-old female with PMH of T2DM, HLD, seizure disorder, and postherpetic neuralgia. She presented on 01/18 for strokelike symptoms that developed the morning of 01/17 and worsened on 01/18. Patient notes that she woke up on 01/17 feeling extremely tired, and needed to go back to bed. When she got up and went to work she had difficulty saying words (she does note that she could think of the words, but could not get them out). At work, she had difficulty typing on her keyboard, and notes that she would type the wrong words or letters. She denies any facial droop, but noted slurred speech and difficulty getting words out. There has been no change in this over the past 24 hours. She denies any changes in vision, blurry vision, diplopia, photophobia. No unilateral deficits. No falls. No recent injuries to the head or neck. She notes she has had a brain fog, as if she has had "3 glasses of wine". No headache. No history of stroke, MS, or migraines. No family history of MS. Family history of stroke; father (87yo) x 2. No sick contacts. Patient wears reading glasses. She reports that she took all of her regular morning medications, but she does take insulin in the evenings and she has not had it at the time of admission. Patient is hypertensive at 159/80 at time of admission; vitals otherwise stable. ED course: Aspirin 324 mg p.o. ROS: Patient endorses brain fog, increased fatigue, decreased dexterity, and expressive aphasia. Patient denies fever, chills, nightsweats, dizziness/lightheadedness with walking, ANDERSON, injuries to the head or neck, facial droop, unilateral deficits or numbness/tingling in extremities, changes in vision (such as diplopia, loss of vision, or photophobia), chest pain, chest palpitations, cough, SOB, abdominal pain, N/V/D, urinary s/s, burning with urination, or pain/numbness/tingling in the arms or legs. Principal Dx & Hospital Course #1 = Principal Diagnosis (1) Ischemic stroke: Ischemic CVA Patient developed decreased finger dexterity, increased fatigue, and difficulty with speech on the morning of 01/17 CTA head and neck negative, CT head negative Brain MRI with small foci in the left whaley radiata concerning for acute or subacute infarct Echocardiogram with bubble study was negative Permissive hypertension was allowed but she will be started on lisinopril 2.5 mg daily after discharge Changed simvastatin to atorvastatin 40 mg daily Started dual antiplatelet therapy x 3 weeks with aspirin and Plavix, followed by aspirin monotherapy Seen by PT/OT, and speech therapy, neurology consultation appreciated 30-day event monitor after discharge to look for occult atrial fibrillation-no events on telemetry while here Lipids with elevated triglycerides secondary to uncontrolled diabetes, but otherwise controlled Hemoglobin A1c uncontrolled at 10.8% with hyperglycemia while here-discussed better control of diabetes She was feeling much better but had some ongoing dysarthria at the time of discharge Follow-up with neurology in 2 to 3 weeks (2) Uncontrolled diabetes mellitus with hyperglycemia, with long-term current use of insulin: Hemoglobin A1c uncontrolled at 10.8% She admits to being noncompliant with her insulin and checking glucose at times but is committed to improving this Increase Lantus to 56 units at bedtime and continue to follow-up with endocrinology, continue NovoLog and metformin, Trulicity (3) HTN (hypertension), benign: Blood pressures are elevated in the setting of stroke but she is also had elevated blood pressures in the past Start lisinopril and follow-up with PCP (4) Seizure disorder: Epilepsy with last known instance 25 years ago, per patient Continue home carbamazepine (5) Hyperlipidemia: Simvastatin --> atorvastatin (as above) (6) Obesity (BMI 30-39.9): BMI 37-needs weight loss Plan DVT prophylaxis-SCDs Disposition-stable for discharge to home Discharge Exam Constitutional WD/WN, vitals as above Eyes PERRL, conjunctivae normal, anicteric sclerae ENMT external ear and nose normal, oropharynx normal Neck trachea midline, no thyromegaly Respiratory normal respiratory effort, lungs clear to auscultation Cardiovascular RRR, no murmur, no edema Chest (Breasts) Chest: normal inspection of chest Gastrointestinal (Abdomen) normal bowel sounds, soft, nontender, no hepatosplenomegaly Musculoskeletal Extremities: extremities normal to inspection; no cyanosis and no clubbing Skin no rashes, warm and dry Neurologic moves all extremities and awake; no focal motor deficits Had some mild dysarthria Psychiatric A+Ox3, euthymic affect Lymphatic no lymphedema Updated Medication List Medication Instructions Recorded Confirmed Type cyanocobalamin (vitamin B-12) 1,000 mcg PO DAILY #30 tabs 09/09/19 01/22/24 History 1,000 mcg tablet,extended release acetaminophen 325 mg tablet 650 mg PO QID PRN Pain 08/02/20 01/22/24 History (Tylenol) cholecalciferol (vitamin D3) 125 125 mcg PO DAILY 01/01/22 01/22/24 History mcg (5,000 unit) capsule pen needle, diabetic 32 gauge x #400 ea 08/12/22 01/21/24 Rx 1/4" (Novofine 32) blood sugar diagnostic (OneTouch #10 ea 01/07/23 01/21/24 History Ultra Blue Test Strip) flash glucose sensor (FreeStyle 01/07/23 01/21/24 History Brianda 2 Sensor kit) lancets 33 gauge (OneTouch Delica 01/07/23 01/21/24 History Lancets) carbamazepine 200 mg 200 mg PO BID #180 caps 01/26/23 01/22/24 Rx capsule,extended release [id number] metformin 1,000 mg tablet 1,000 mg PO BID #180 tabs 07/28/23 01/22/24 Rx dulaglutide 4.5 mg/0.5 mL 4.5 mg subcut WK 01/19/24 01/22/24 History subcutaneous pen injector (Trulicity) insulin aspart U-100 100 unit/mL 0 sliding scale dose subcut TIDM 01/19/24 01/22/24 History (3 mL) subcutaneous pen (Novolog FlexPen U-100 Insulin aspart) aspirin 81 mg tablet,delayed 81 mg PO QAM #90 tabs 01/20/24 01/22/24 Rx release atorvastatin 40 mg tablet 40 mg PO QAM #30 tabs 01/20/24 01/22/24 Rx clopidogrel 75 mg tablet 75 mg PO QAM #20 tabs 01/20/24 01/22/24 Rx insulin glargine U-300 conc 300 56 unit (0.1867 mL) subcut DAILY 01/20/24 01/22/24 Rx unit/mL (3 mL) subcutaneous pen #6 mL (Yolandao Max U-300 SoloStar) lisinopril 2.5 mg tablet 2.5 mg PO DAILY #30 tabs 01/20/24 01/22/24 Rx Hospital Stay Data Consultations 01/19/24 16:08 ED Decision to Admit Stat 01/19/24 21:42 Consult Neurology Routine Diagnostic Imagining Performed 01/19/24 12:09 CT head/brain wo con Stat 01/19/24 14:04 CT angio head w con Stat CT angio neck with con Stat 01/19/24 16:08 MR brain wo/w con Stat Echocardiogram Pending Results Patient Have Any Pending Studies at Discharge: No Discharge Instructions Given to Patient (Per Discharging Provider) You were admitted with a stroke and this was most likely caused by longstanding diabetes that is uncontrolled. Your blood pressures are also high and should be treated with medication. Please take Plavix and aspirin together for 20 more days, then STOP the Plavix and ONLY take the aspirin 81mg daily. These are blood thinners that help prevent future strokes. Your cholesterol medication was changed to atorvastatin which is proven to reduce risk of future strokes after having one. You will be started on lisinopril as a blood pressure medication. Please buy a blood pressure cuff to check your blood pressure at home. Your PCP should check your kidney function and potassium levels in 1-2 weeks after starting this medication. You will be sent a heart monitor in the mail to wear for 30 days. This will assess to see if you have any abnormal heart rhythms that can cause strokes such as atrial fibrillation or atrial flutter. You were given a prescription for both occupational and speech therapy. You can call up a rehabilitative center of your choice and set up these therapy sessions. Risk Factors for Stroke: You can reduce your chances of stroke by working with your medical provider to adopt a healthy lifestyle. Some specific ways to lower your chance of stroke are: * If you are a smoker, now is the time to stop smoking cigarettes * If you are diabetic, improve the control of your blood sugars * Avoid excessive amounts of alcohol * Control high blood pressure * Lose weight if you are overweight * Be sure to lead an active lifestyle * Eat a healthy diet low in salt, cholesterol and fat You should know about other risk factors for stroke that you are unable to control. These include: * Age 55 years or older * Male gender * Certain racial groups: , or / * Family History of Stroke, Mini stroke or Heart Attack * Sickle Cell Disease Follow Up: It is important for you to keep your follow up appointments with your medical provider. Who to Call and When: Medical Emergencies: Call 911 immediately if you experience any of the following warning signs and symptoms of Stroke: * Sudden numbness or weakness of the face, arm or leg, especially on one side of the body * Sudden confusion, trouble speaking or understanding * Sudden trouble seeing in one or both eyes * Sudden trouble walking, dizziness, loss of balance or coordination * Sudden severe headache with no cause Do not delay calling 911 if you experience any warning signs or symptoms of a stroke. Delay in seeking medical attention may affect what treatments can be given to you. . Total Time Total Time Spent Total Time Spent (In Minutes): 45 minutes Total Time Includes: Examination of the Patient, Discharge Planning and Medication Reconciliation Coding Level of Care Code 87800 INP/OBS DISCH >30 MIN Diagnoses Ischemic stroke I63.9 Uncontrolled diabetes mellitus with hyperglycemia, with long-term current use of insulin E11.65; Z79.4 HTN (hypertension), benign I10 Seizure disorder G40.909 Hyperlipidemia E78.5 Obesity (BMI 30-39.9) E66.9
--- NOTE | 2024-01-25 08:58 | Pharmacy Report ---
- Date of Service January 25, 2024 - Pharmacy CVA/TIA Medication Review Medications to Prevent Stroke handout has been added to the patients discharge packet. Antiplatelet(s) * aspirin 81 mg PO daily * clopidogrel 75 mg PO daily Cholesterol * High intensity statin: atorvastatin 40 mg daily DVT Prophylaxis * SCD knee Therapeutic Anticoagulation * No history of Afib/Aflutter noted Type 2 Diabetes * Patient has T2DM and patient is prescribed dulaglutide
== END 2024-01-20 17:24 | disposition home or self-care (01) | DRG 66 ==
LOC: ED 11:49 → 4W 17:13 → SUATTDRO 17:13 → INTOOBSV 17:13 → 4W 21:30

== ENCOUNTER 2024-01-22 09:49 | Inpatient (IN) ==
[2024-01-22 10:27] LABS: iSTAT Creatinine 0.6 mg/dl (0.6-1.3); iSTAT Hemoglobin 14.6 g/dl (12.0-16.0); iSTAT Ionized Calcium 1.08 mmol/l (1.12-1.32); iSTAT Potassium 4.2 mmol/L (3.3-5.0)
[2024-01-22] MEDS: SODIUM CHLORIDE 0.9% 1,000 ML IV SCH (10:50)
--- NOTE | 2024-01-22 11:03 | CT Scan Report ---
CT head/brain wo con CLINICAL HISTORY: 63 years-old Female with worsening right sided weakness, recent CVA. Acute strokel jono symptoms TECHNIQUE: Multiple axial CT images of the head were obtained without contrast. A dose lowering tech nique was utilized adhering to the principles of ALARA. CT DOSE: 547.75 mGy.cm COMPARISON: Brain MRI 01/19/2024 FINDINGS: No acute intracranial hemorrhage, midline shift, intracranial mass, hydrocephalus, or abnormal extra- axial collection. Involutional changes with chronic microvascular ischemic disease redemonstrated. Pr ogressive cytotoxic edema noted involving the left whaley radiata/lentiform nuclear infarcts on image 16 series 2. The calvarium is intact. Hyperostosis frontalis interna. The paranasal sinuses, mastoid air cells, an d middle ear cavities are clear. IMPRESSION: 1. No acute intracranial hemorrhage or midline shift. 2. Progressive cytotoxic edema noted involving the acute to subacute infarcts within the left frontal lobe whaley radiata and lentiform nucleus. ACT 112: Negative or not required by law. The above report was generated using voice recognition software. It may contain grammatical, syntax o r spelling errors. Electronically signed by: Brown Deng M.D. 01/22/2024 11:01 AM
[2024-01-22 11:15] LABS: Alanine Aminotransferase 18 U/L (7-52); Albumin Globulin Ratio 1.1 (0.9-2); Albumin Level 4.1 gm/dl (3.4-5.0); Alkaline Phosphatase 71 U/L (34-104); Anion Gap 12 (3-11); BUN Creatinine Ratio 15.4 (10-20); Bilirubin,Total 0.5 mg/dl (0.2-1.0); Blood Urea Nitrogen 10 mg/dl (6-23); Calcium 9.1 mg/dl (8.6-10.3); Carbon Dioxide 23 mmol/L (21-32); Chloride 102 mmol/L (98-107); Creatinine Clr Calc Pharmacy 107.2 ml/min; Est GFR (African American) 110.3 ml/min; Est GFR (Non-African American) 95.2 ml/min; Globulin 3.6 gm/dl (2.5-4.0); Glucose 198 mg/dl (70-99(Fasting)); Lipase 20 U/L (11-82); Magnesium 2.1 mg/dl (1.7-2.4); Sodium 137 mmol/L (136-145); Thyroid Stimulating Hormone 1.224 uIu/ml (0.300-4.500); Total Protein 7.7 gm/dl (6.0-8.3); Troponin I High Sensitivity 5.2 pg/ml (0-14)
--- NOTE | 2024-01-22 11:19 | Emergency Department Note ---
Impression & Plan Stroke-like symptoms ED Provider Note ED Provider Note NAME: PEACE ENAMORADO AGE:63 SEX: Female : 1960 ARRIVES VIA: EMS INFORMANT: Patient ED PROVIDER(s): Susi Nielsen DO CHIEF COMPLAINT: Worsening strokelike symptoms HPI: This is a 63-year-old female who presents emergency department due to concern for worsening strokelike symptoms. Patient recently admitted to the hospital and was confirmed to have a stroke. She states the main symptom at that time was trouble speaking. She states she was discharged on Thursday. She was started on aspirin and Plavix and follow-up including rehab/therapy was arranged. She states yesterday she began noticing slightly increased dysarthria and increased right upper extremity weakness. She states by this morning the right upper extremity weakness seemed worse and she also felt weak and unable to stand on her right lower extremity. She states her speech seems worse also compared to when she was discharged. She states she is slightly lightheaded. She denies fevers or chills, nausea or vomiting, or headaches. She denies any vision changes. PAST MEDICAL HISTORY:See Below PAST SURGICAL HISTORY:See Below FAMILY HISTORY:See Below SOCIAL HISTORY:See Below HOME MEDICATIONS:See Below ALLERGIES:See Below VITALS:See Below PHYSICAL EXAMINATION: GENERAL: alert, well appearing, well nourished, no distress, non-toxic EYE EXAM: normal conjunctiva, PERRL and EOM's grossly intact OROPHARYNX: no exudate, no erythema, lips, buccal mucosa, and tongue normal and mucous membranes are moist NECK: supple, no nuchal rigidity, no adenopathy, non-tender LUNGS: Clear to auscultation. Normal chest wall mechanics, no w/r/r HEART: no murmurs, S1 normal and S2 normal ABDOMEN: abdomen soft, non-tender, normo-active bowel sounds, no masses, no rebound or guarding. BACK: Back is symmetrical on inspection and there is no deformity, no midline tenderness, no CVA tenderness. SKIN: no rashes, petechiae, orbruising UPPER EXTREMITIES: upper extremities are grossly normal. FROM, nml pulses b/l. LOWER EXTREMITIES: No pitting edema. FROM, nml pulses b/l. NEURO EXAM: Normal sensorium, cranial nerves II-XII grossly intact, dysarthria noted, mild facial droop,nogross weakness of arms, no gross weakness of legs. Gross sensation intact. No limb ataxia. Difficulty with fine motor movements to right hand. Vital Signs: reviewed and remarkable Differential Diagnosis: ischemic Stroke, hemorrhagic stroke, bells palsy, mass, neoplasm, migraine headache, seizure, subarachnoid hemorrhage, TIA, and transient global amnesia. MEDICAL DECISION MAKING: This is a 63-year-old female who returns for worsening strokelike symptoms after recent admission and finding of stroke. Patient states she is taking her aspirin and Plavix daily as well as her other prescribed medications. She was afebrile and vital signs stable. Labs drawn and sent, IV established, EKG performed at bedside interpreted by me and patient monitored on telemetry. She was sent for urgent noncontrast head CT which showed new findings of likely cytotoxic edema in the area of the prior stroke. This was discussed with neurology who recommended admission, repeat MRI brain, and monitoring for other changes or evolving symptoms. Case discussed with on-call hospitalist team for additional evaluation and management. Patient was updated on all results and verbalized understanding. Consultation(s): 1116: Discussed with Dr. Lara, neurology. Advises repeat admission, repeat MRI of the brain but does not feel patient requires repeat angiography imaging. States patient's blood pressure can remain slightly higher, otherwise evaluate for other changes such as evolving infection or electrolyte abnormality. Patient should be monitored and he can see in consult. He feels this is likely just evolution/progression of the stroke she is already had. 1155: Discussed with Dr. Petit, [facility] hospitalist team, for additional evaluation and management. ER Treatment Provided: See below Diagnostics Interpreted By Me: -ECG: Normal sinus at 82, normal axis, normal intervals, no acute ST/T wave changes -Cardiac Monitoring: An order was placed for continuous cardiac monitoring. The monitor shows a rate of 82 with normal sinus rhythm. -Laboratory studies: As stated above and show below. -Imaging studies: CT head: No obvious ICH Triage Nursing Note Reviewed Prior/Outside Records Reviewed Past Med/Surg History Medical History Uncontrolled diabetes mellitus with hyperglycemia, with long-term current use of insulin Obesity (BMI 30-39.9) HTN (hypertension), benign Ischemic stroke Complex renal cyst US [address] 07/2020, CT Renal ordered 05/2023. No change. no further testing Gastritis Chronic back pain MID/LEFT BACK PAIN Cyst FOUND ON KIDNEY (RECENT FINDING) History of skin cancer History of herpes zoster Hyperlipidemia Seizure disorder EPILEPSY-LAST EVENT OVER 16 YEARS AGO Surgical History History of anesthesia reaction WITH HOLGER>DIFFICULTY BREATHING RESULTING IN A PANIC ATTACK History of tooth extraction Hx of tonsillectomy History of cholecystectomy Family History Father Prostate cancer Family history of diabetes mellitus Mother Family history of diabetes mellitus Other No significant family history Denies family history of Ovarian cancer Myocardial infarction Breast cancer Colorectal cancer Social History Smoking Status: Never smoker Second Hand Exposure: No; Do You Dip or Chew Tobacco: No; Hx Alcohol Use: Yes Alcohol type: wine Alcohol Intake Frequency Comment: Occasional Hx Substance Use: No Preferred Language: Mohawk Communication Ability: Effective Visual Impairment: Diminished Hearing Ability: Normal Managing Director Required: No Beliefs That Will Affect Care: None marital status: marrried Current Living Situation: Spouse current occupational status: employed How many Children do You have: 2 Feels Safe at Home: Yes Childhood Exposure to Second-Hand Smoke: No caffeine: Yes Dental Care, Regularly: Yes Physical Activity Frequency: 5-6 Times per Week Seatbelt Use: always Sunscreen Use: Yes Assistive Devices: None Allergies Allergies Allergy/AdvReac Type Severity Reaction Status Date / Time No Known Allergies Allergy Mild Verified 01/21/24 10:12 Home Meds Home Medications Medication Instructions Recorded Confirmed cyanocobalamin (vitamin B-12) 1,000 mcg PO DAILY #30 tabs 09/09/19 01/22/24 1,000 mcg tablet,extended release acetaminophen 325 mg tablet 650 mg PO QID PRN Pain 08/02/20 01/22/24 (Tylenol) cholecalciferol (vitamin D3) 125 125 mcg PO DAILY 01/01/22 01/22/24 mcg (5,000 unit) capsule blood sugar diagnostic (OneTouch #10 ea 01/07/23 01/21/24 Ultra Blue Test Strip) flash glucose sensor (FreeStyle 01/07/23 01/21/24 Brianda 2 Sensor kit) lancets 33 gauge (OneTouch Delica 01/07/23 01/21/24 Lancets) dulaglutide 4.5 mg/0.5 mL 4.5 mg subcut WK 01/19/24 01/22/24 subcutaneous pen injector (Trulicity) insulin aspart U-100 100 unit/mL 0 sliding scale dose subcut TIDM 01/19/24 01/22/24 (3 mL) subcutaneous pen (Novolog FlexPen U-100 Insulin aspart) Previous Rx's Medication Instructions Recorded pen needle, diabetic 32 gauge x #400 ea 08/12/22 1/" (Novofine 32) carbamazepine 200 mg 200 mg PO BID #180 caps 01/26/23 capsule,extended release [id number] metformin 1,000 mg tablet 1,000 mg PO BID #180 tabs 07/28/23 aspirin 81 mg tablet,delayed 81 mg PO QAM #90 tabs 01/20/24 release atorvastatin 40 mg tablet 40 mg PO QAM #30 tabs 01/20/24 clopidogrel 75 mg tablet 75 mg PO QAM #20 tabs 01/20/24 insulin glargine U-300 conc 300 56 unit (0.1867 mL) subcut DAILY 01/20/24 unit/mL (3 mL) subcutaneous pen #6 mL (Toujeo Max U-300 SoloStar) lisinopril 2.5 mg tablet 2.5 mg PO DAILY #30 tabs 01/20/24 Results & Data (ED) Vital Signs Vital Signs - 24 hr 01/22/24 09:52 01/22/24 10:55 01/22/24 10:56 Temperature 36.8 C Temperature Source Oral Pulse Rate 93 H 83 Pulse Rate [Apical] Pulse Rate from SpO2 Sensor 81 Pulse Rhythm Regular Pulse Rhythm [Apical] Pulse Strength Normal Pulse Strength [Apical] Respiratory Rate 18 17 Respiratory Effort / Characteristics Non-Labored Spontaneous Respiratory Depth Normal Respiratory Pattern Regular Blood Pressure 171/93 H Blood Pressure [Left Arm] Blood Pressure Mean 119 Blood Pressure Mean [Left Arm] Blood Pressure Position Sitting Blood Pressure Position [Left Arm] Pulse Oximetry 94 94 92 Oxygen Delivery Method Room Air Room Air Sepsis Recent Fever Within 48 Hours No Sepsis New/Unexplained Change in Mental Status No Sepsis Action Taken by Nursing No Action Required 01/22/24 10:57 01/22/24 10:57 01/22/24 11:00 Temperature Temperature Source Pulse Rate 83 80 Pulse Rate [Apical] 84 Pulse Rate from SpO2 Sensor 79 Pulse Rhythm Pulse Rhythm [Apical] Regular Pulse Strength Pulse Strength [Apical] Normal Respiratory Rate 16 17 Respiratory Effort / Characteristics Non-Labored Spontaneous Respiratory Depth Normal Respiratory Pattern Regular Blood Pressure Blood Pressure [Left Arm] 154/72 H Blood Pressure Mean Blood Pressure Mean [Left Arm] 99 Blood Pressure Position Blood Pressure Position [Left Arm] Lying Pulse Oximetry 92 92 Oxygen Delivery Method Room Air Sepsis Recent Fever Within 48 Hours Sepsis New/Unexplained Change in Mental Status Sepsis Action Taken by Nursing 01/22/24 11:10 01/22/24 11:20 01/22/24 11:20 Temperature Temperature Source Pulse Rate 85 95 H Pulse Rate [Apical] Pulse Rate from SpO2 Sensor 87 Pulse Rhythm Pulse Rhythm [Apical] Pulse Strength Pulse Strength [Apical] Respiratory Rate 12 13 Respiratory Effort / Characteristics Respiratory Depth Respiratory Pattern Blood Pressure 108/72 Blood Pressure [Left Arm] Blood Pressure Mean 78 Blood Pressure Mean [Left Arm] Blood Pressure Position Blood Pressure Position [Left Arm] Pulse Oximetry 94 Oxygen Delivery Method Sepsis Recent Fever Within 48 Hours Sepsis New/Unexplained Change in Mental Status Sepsis Action Taken by Nursing 01/22/24 11:33 01/22/24 11:34 01/22/24 11:34 Temperature Temperature Source Pulse Rate 87 85 Pulse Rate [Apical] Pulse Rate from SpO2 Sensor 85 Pulse Rhythm Pulse Rhythm [Apical] Pulse Strength Pulse Strength [Apical] Respiratory Rate 14 16 Respiratory Effort / Characteristics Respiratory Depth Respiratory Pattern Blood Pressure 167/79 H Blood Pressure [Left Arm] Blood Pressure Mean 118 Blood Pressure Mean [Left Arm] Blood Pressure Position Blood Pressure Position [Left Arm] Pulse Oximetry 94 Oxygen Delivery Method Sepsis Recent Fever Within 48 Hours Sepsis New/Unexplained Change in Mental Status Sepsis Action Taken by Nursing 01/22/24 11:40 01/22/24 11:50 01/22/24 12:00 Temperature Temperature Source Pulse Rate 83 80 85 Pulse Rate [Apical] Pulse Rate from SpO2 Sensor 83 83 84 Pulse Rhythm Pulse Rhythm [Apical] Pulse Strength Pulse Strength [Apical] Respiratory Rate 15 13 15 Respiratory Effort / Characteristics Respiratory Depth Respiratory Pattern Blood Pressure Blood Pressure [Left Arm] Blood Pressure Mean Blood Pressure Mean [Left Arm] Blood Pressure Position Blood Pressure Position [Left Arm] Pulse Oximetry 92 94 91 Oxygen Delivery Method Sepsis Recent Fever Within 48 Hours Sepsis New/Unexplained Change in Mental Status Sepsis Action Taken by Nursing 01/22/24 12:00 01/22/24 12:10 01/22/24 12:20 Temperature Temperature Source Pulse Rate 85 87 Pulse Rate [Apical] Pulse Rate from SpO2 Sensor 84 87 Pulse Rhythm Pulse Rhythm [Apical] Pulse Strength Pulse Strength [Apical] Respiratory Rate 13 17 Respiratory Effort / Characteristics Respiratory Depth Respiratory Pattern Blood Pressure 163/84 H Blood Pressure [Left Arm] Blood Pressure Mean 97 Blood Pressure Mean [Left Arm] Blood Pressure Position Blood Pressure Position [Left Arm] Pulse Oximetry 90 95 Oxygen Delivery Method Sepsis Recent Fever Within 48 Hours Sepsis New/Unexplained Change in Mental Status Sepsis Action Taken by Nursing 01/22/24 12:30 01/22/24 12:30 01/22/24 12:40 Temperature Temperature Source Pulse Rate 83 82 Pulse Rate [Apical] Pulse Rate from SpO2 Sensor 82 Pulse Rhythm Pulse Rhythm [Apical] Pulse Strength Pulse Strength [Apical] Respiratory Rate 17 17 Respiratory Effort / Characteristics Respiratory Depth Respiratory Pattern Blood Pressure 159/118 H Blood Pressure [Left Arm] Blood Pressure Mean 131 Blood Pressure Mean [Left Arm] Blood Pressure Position Blood Pressure Position [Left Arm] Pulse Oximetry 92 Oxygen Delivery Method Sepsis Recent Fever Within 48 Hours Sepsis New/Unexplained Change in Mental Status Sepsis Action Taken by Nursing 01/22/24 12:50 Temperature Temperature Source Pulse Rate 98 H Pulse Rate [Apical] Pulse Rate from SpO2 Sensor Pulse Rhythm Pulse Rhythm [Apical] Pulse Strength Pulse Strength [Apical] Respiratory Rate 16 Respiratory Effort / Characteristics Respiratory Depth Respiratory Pattern Blood Pressure Blood Pressure [Left Arm] Blood Pressure Mean Blood Pressure Mean [Left Arm] Blood Pressure Position Blood Pressure Position [Left Arm] Pulse Oximetry 93 Oxygen Delivery Method Sepsis Recent Fever Within 48 Hours Sepsis New/Unexplained Change in Mental Status Sepsis Action Taken by Nursing Laboratory Data 01/22/24 11:52 01/22/24 11:52 Lab Results 01/22/24 01/22/24 01/22/24 Range/Units 10:09 10:14 11:52 WBC Cancelled 12.74 H RBC Cancelled 4.91 Hgb Cancelled 13.6 POC Hgb 14.6 (12.0-16.0) g/dl Hct Cancelled 42.7 POC Hct 43 (37-47) % MCV Cancelled 87.0 MCH Cancelled 27.7 MCHC Cancelled 31.9 L RDW Std Deviation Cancelled 39.7 RDW Coeff of Bladimir Cancelled 12.4 Plt Count Cancelled 365 MPV Cancelled 10.3 Immature Gran % (Auto) Cancelled 0.5 Neut % (Auto) Cancelled 78.8 Lymph % (Auto) Cancelled 14.2 [place] % (Auto) Cancelled 5.9 Eos % (Auto) Cancelled 0.2 Baso % (Auto) Cancelled 0.4 Neut # (Auto) Cancelled 10.04 H Lymph # (Auto) Cancelled 1.81 [place] # (Auto) Cancelled 0.75 H Eos # (Auto) Cancelled 0.02 Baso # (Auto) Cancelled 0.05 Immature Gran # (Auto) Cancelled 0.07 Absolute Nucleated RBC Cancelled Nucleated RBC % (auto) Cancelled Neutrophils % (Manual) Cancelled Band Neutrophils % Cancelled Lymphocytes % (Manual) Cancelled Prolymphocyte % Cancelled Reactive Lymphs % (Man) Cancelled Monocytes % (Manual) Cancelled Eosinophils % (Manual) Cancelled Basophils % (Manual) Cancelled Metamyelocytes % (Man) Cancelled Myelocytes % (Man) Cancelled Promyelocytes % (Man) Cancelled Blast Cells % (Manual) Cancelled Plasma Cell % (Manual) Cancelled Other Cells % Cancelled Nucleated RBC % Cancelled Neutrophils # (Manual) Cancelled Band Neutrophils # Cancelled Total Absolute Neuts Cancelled Lymphocytes # (Manual) Cancelled Prolymphocyte # Cancelled Reactive Lymphs # Cancelled Total Abs Lymphocytes Cancelled Monocytes # (Manual) Cancelled Eosinophils # (Manual) Cancelled Basophils # (Manual) Cancelled Metamyelocytes # (Man) Cancelled Myelocytes # (Manual) Cancelled Promyelocytes # (Man) Cancelled Blast Cells # (Man) Cancelled Plasma Cell # (Manual) Cancelled Other Cells # Cancelled Nucleated RBCs # (Man) Cancelled Hypersegmented Neuts Cancelled Hyposegmented Neuts Cancelled Hypogranular Neuts Cancelled Large Granular Lymphs Cancelled # Lrg Granular Lymphs Cancelled Hairy Cells Cancelled Smudge Cells Cancelled Toxic Granulation Cancelled Toxic Vacuolation Cancelled Dohle Bodies Cancelled Susie Rods Cancelled Platelet Estimate Cancelled Hypogranular Platelets Cancelled Giant Platelets Cancelled Platelet Satelliting Cancelled RBC Morphology Cancelled Polychromasia Cancelled Hypochromasia Cancelled Poikilocytosis Cancelled Basophilic Stippling Cancelled Anisocytosis Cancelled Microcytosis Cancelled Macrocytosis Cancelled Spherocytes Cancelled Pappenheimer Bodies Cancelled Sickle Cells Cancelled Target Cells Cancelled Tear Drop Cells Cancelled Ovalocytes Cancelled Stomatocytes Cancelled Ackerman-Nikolai Bodies Cancelled Echinocytes Cancelled Acanthocytes (Spur) Cancelled Rouleaux Cancelled RBC Agglutinates Cancelled Schistocytes Cancelled Sezary Cell Cancelled POC Sodium 139 (135-144) mmol/L Sodium 137 (136-145) mmol/L POC Potassium 4.2 (3.3-5.0) mmol/L Potassium TNP 3.7 POC Chloride 102 (101-112) mmol/L Chloride 102 (98-107) mmol/L Carbon Dioxide 23 (21-32) mmol/L POC Total CO2 26 (24-31) mmol/L Anion Gap 12 H (3-11) POC Anion Gap 17.0 (16-25) mmol/L POC BUN 11 (7-18) mg/dl BUN 10 (6-23) mg/dl Creatinine 0.65 (0.6-1.2) mg/dl POC Creatinine 0.6 (0.6-1.3) mg/dl Est Cr Clr Drug Dosing 107.2 ml/min Est GFR ( Amer) 110.3 ml/min Est GFR (Non-Af Amer) 95.2 ml/min BUN/Creatinine Ratio 15.4 (10-20) Glucose 198 H (70-99(Fasting)) mg/dl POC Glucose (other) 203 H (70-99) mg/dl Calcium 9.1 (8.6-10.3) mg/dl POC Ioniz Calcium Obdulia 1.08 L (1.12-1.32) mmol/l Magnesium 2.1 (1.7-2.4) mg/dl Total Bilirubin 0.5 (0.2-1.0) mg/dl AST TNP 13 ALT 18 (7-52) U/L Alkaline Phosphatase 71 (34-104) U/L Troponin I High Sens 5.2 (0-14) pg/ml Total Protein 7.7 (6.0-8.3) gm/dl Albumin 4.1 (3.4-5.0) gm/dl Globulin 3.6 (2.5-4.0) gm/dl Albumin/Globulin Ratio 1.1 (0.9-2) Lipase 20 (11-82) U/L TSH 1.224 (0.300-4.500) uIu/ml Blood Parasites ID Cancelled Administered Medications Discontinued Medications Sodium Chloride (Nss) 1,000 mls @ 125 mls/hr IV .Q8H ALISON Stop: 02/21/24 10:29 Last Admin: 01/22/24 10:50 Dose: 125 mls/hr Documented By: LEI Lorazepam 0.5 mg/ Syringe 0.5 mls @ 2 mls/min IV NOW STA Stop: 01/22/24 13:27 Last Admin: 01/22/24 13:36 Dose: Not Given Documented By: LEI Lorazepam (Lorazepam 1 Mg/1 Ml Syr Ed Inj Use) Confirm Administered Dose 1 mg .ROUTE .STK-MED ONE Stop: 01/22/24 13:27 Last Admin: 01/22/24 13:36 Dose: 0.5 mg Documented By: LEI Imaging Data Radiologist's Impression: Head CT 01/22/24 10:22 CT head/brain wo con CLINICAL HISTORY: 63 years-old Female with worsening right sided weakness, recent CVA. Acute strokelike symptoms TECHNIQUE: Multiple axial CT images of the head were obtained without contrast. A dose lowering technique was utilized adhering to the principles of ALARA. CT DOSE: 547.75 mGy.cm COMPARISON: Brain MRI 01/19/2024 FINDINGS: No acute intracranial hemorrhage, midline shift, intracranial mass, hydrocephalus, or abnormal extra-axial collection. Involutional changes with chronic microvascular ischemic disease redemonstrated. Progressive cytotoxic edema noted involving the left whaley radiata/lentiform nuclear infarcts on image 16 series 2. The calvarium is intact. Hyperostosis frontalis interna. The paranasal sinuses, mastoid air cells, and middle ear cavities are clear. IMPRESSION: 1. No acute intracranial hemorrhage or midline shift. 2. Progressive cytotoxic edema noted involving the acute to subacute infarcts within the left frontal lobe whaley radiata and lentiform nucleus. ACT 112: Negative or not required by law. The above report was generated using voice recognition software. It may contain grammatical, syntax or spelling errors. Electronically signed by: Brown Deng M.D. 01/22/2024 11:01 AM Brain MRI 01/22/24 12:46 MRI OF THE BRAIN WITHOUT CONTRAST CLINICAL HISTORY: Progressive cytotoxic edema on head CT COMPARISON STUDY: MRI of the brain January 19, 2024. Head CT performed earlier today. TECHNIQUE: Utilizing a 1.5 Erin magnet and dedicated coil, multiplanar, multiecho imaging of the brain was performed without IV contrast. FINDINGS: There has been increase in extent of the acute infarct within the left whaley radiata since MRI of January 19, 2024. This now measures 2.3 x 0.8 cm. Associated T2 hyperintensity has increased. This represents cytotoxic edema. There is no mass effect. There is no evidence for hemorrhagic version. No additional acute infarcts are present. Ventricular system is stable. Basal cisterns are patent. There are no extra-axial collections. Flow-voids for the major intracranial vessels are present. Scattered white matter T2 hyperintense foci are unchanged and represent small vessel disease. IMPRESSION: Increase in extent of the 2.3 x 0.8 cm acute infarct within left whaley radiata, as described above, since MRI of January 19, 2024. No mass effect. No hemorrhagic conversion. ACT 112: Negative or not required by law. Electronically signed by: Piyush Rodriguez M.D. 01/22/2024 2:11 PM Discharge Plan Visit Data Chief Complaint: Stroke/CVA Symptoms Stated Complaint: STROKE LIKE SYMPTOMS, SPEECH, PREV VISIT ED Provider: Susi Nielsen Discharge Problem: Stroke-like symptoms Patient Disposition: Admitted As Inpatient Discharge Instructions Interventions: ED Discharge Assessment Last Done: 01/22/24 14:49
--- NOTE | 2024-01-22 11:38 | History & Physical Report ---
Date of Service January 22, 2024 Assessment & Plan (1) Ischemic stroke: Plan: Patient returned on 01/20 for progression of her strokelike symptoms that the first developed on Wednesday 01/17 Remote history from ED visit on 01/18: No hx of strokes Patient noticed increased fatigue, decreased finger dexterity, and difficulty with speech the morning of 01/17; Outside the window for TNKase Brain MRI revealed small foci in the left whaley radiata concerning for acute or subacute infarct Neurology was consulted, and it was recommended that she be discharged on DAPT x 3 weeks Patient returned on 01/20 with slurred speech and right-handed weakness, which were both new symptoms for the patient Head CT on arrival revealed progressive cytotoxic edema involving the acute to subacute infarct Repeat brain MRI ordered, pending EKG NSR at 82 bpm; QTc 453 No history of A-fib, per patient; TSH WNL Echo on 01/19 revealed no ASD, but resolution does not allow for assessment of PFO Permissive HTN in the setting of worsening strokelike symptoms; labetalol 5 mg IV on-call as needed for SBP>220 or DBP>120 Neurochecks q4h No BP, labs, IV in the RUQ Dysphagia screen Speech therapy consult PT/OT consult Continue DAPT Neurology consult A.m. CBC, BMP, mag (2) Uncontrolled diabetes mellitus with hyperglycemia, with long-term current use of insulin: Plan: Last A1c at 10.2% on 01/20/2024 Glucose 203 on admission Hold metformin, Trulicity Patient is normally on 54 units daily HS of insulin glargine Lantus 15 u BID while inpatient SSI; with target BSG range 110-140mg/dL, CF 40, carb ratio 13 T2DM diet BSG ACHS Adjust regimen as needed (3) HTN (hypertension), benign: Plan: Permissive HTN (as above) (4) Hyperlipidemia: Plan: Continue atorvastatin (5) Seizure disorder: Plan: Epilepsy with last known incidence 25 years ago Plan Disposition: Admit to PCU telemetry Full code T2DM, AHA diet pending dysphagia screen; given slurred speech, recommended easy to chew diet with aspiration precautions for now VTE PPx: SCDs (hold chemical DVT PPx in the setting of worsening strokelike symptoms and progressive cytotoxic edema) Continue aspirin and Plavix therapy History of Present Illness Chief Complaint: Stroke/CVA symptoms Primary Care Provider: Mikael Harrington, DO Sheehan is a 63-year-old female with PMH of T2DM, seizure disorder, HLD, postherpetic neuralgia, HTN, and recent left-sided ischemic stroke diagnosed on 01/18. Patient presented for worsening of her strokelike symptoms after hospital discharge. When she was seen in the ED on 01/18, she exhibited slow, paused speech and reported that she was having trouble saying words even though she was able to think of them. She also reported brain fog at this time and decreased hand dexterity when typing. Please see H&P on 01/18 for additional details. She was discharged on 01/19 on DAPT x 3 weeks and atorvastatin for her new left-sided ischemic stroke. Upon return to the ED, she has notable decreased right-sided deficits, slurred speech, and facial droop. She reports this has been worsening since her discharge. She reports that she took all of her regular morning medications, but has not had any insulin today. Her brain fog has continued, and she notes that her right hand dexterity has worsened (such as regularly dropping her phone). She also notes that her right leg gave out at her at home yesterday and she went down on her bed; no fall; no head strike. She reports she has been taking her aspirin and Plavix as prescribed. Patient is hypertensive at 159/118 at time of admission; vitals otherwise stable. ED course: NSS 1000 mL IV ROS: Patient endorses dizziness/lightheadedness, mild facial droop, right-sided UE and LE weakness, and slurred speech. Patient denies fever, chills, nightsweats, bodyaches, ANDERSON, changes in vision, chest pain, SOB, abdominal pain, N/V/D, L-sided weakness, numbness/tingling/pain in either arm or leg bilaterally. Allergies Allergy/AdvReac Type Severity Reaction Status Date / Time No Known Allergies Allergy Mild Verified 01/21/24 10:12 Home Medications Medication Instructions Recorded Confirmed Type cyanocobalamin (vitamin B-12) 1,000 mcg PO DAILY #30 tabs 09/09/19 01/22/24 History 1,000 mcg tablet,extended release acetaminophen 325 mg tablet 650 mg PO QID PRN Pain 08/02/20 01/22/24 History (Tylenol) cholecalciferol (vitamin D3) 125 125 mcg PO DAILY 01/01/22 01/22/24 History mcg (5,000 unit) capsule pen needle, diabetic 32 gauge x #400 ea 08/12/22 01/21/24 Rx 1/4" (Novofine 32) blood sugar diagnostic (OneTouch #10 ea 01/07/23 01/21/24 History Ultra Blue Test Strip) flash glucose sensor (FreeStyle 01/07/23 01/21/24 History Brianda 2 Sensor kit) lancets 33 gauge (OneTouch Delica 01/07/23 01/21/24 History Lancets) carbamazepine 200 mg 200 mg PO BID #180 caps 01/26/23 01/22/24 Rx capsule,extended release [id number] metformin 1,000 mg tablet 1,000 mg PO BID #180 tabs 07/28/23 01/22/24 Rx dulaglutide 4.5 mg/0.5 mL 4.5 mg subcut WK 01/19/24 01/22/24 History subcutaneous pen injector (Trulicity) insulin aspart U-100 100 unit/mL 0 sliding scale dose subcut TIDM 01/19/24 01/22/24 History (3 mL) subcutaneous pen (Novolog FlexPen U-100 Insulin aspart) aspirin 81 mg tablet,delayed 81 mg PO QAM #90 tabs 01/20/24 01/22/24 Rx release atorvastatin 40 mg tablet 40 mg PO QAM #30 tabs 01/20/24 01/22/24 Rx clopidogrel 75 mg tablet 75 mg PO QAM #20 tabs 01/20/24 01/22/24 Rx insulin glargine U-300 conc 300 56 unit (0.1867 mL) subcut DAILY 01/20/24 01/22/24 Rx unit/mL (3 mL) subcutaneous pen #6 mL (Toujeo Max U-300 SoloStar) lisinopril 2.5 mg tablet 2.5 mg PO DAILY #30 tabs 01/20/24 01/22/24 Rx Past Med/Surg History Medical History Uncontrolled diabetes mellitus with hyperglycemia, with long-term current use of insulin Obesity (BMI 30-39.9) HTN (hypertension), benign Ischemic stroke Complex renal cyst US [address] 07/2020, CT Renal ordered 05/2023. No change. no further testing Gastritis Chronic back pain MID/LEFT BACK PAIN Cyst FOUND ON KIDNEY (RECENT FINDING) History of skin cancer History of herpes zoster Hyperlipidemia Seizure disorder EPILEPSY-LAST EVENT OVER 16 YEARS AGO Surgical History History of anesthesia reaction WITH HOLGER>DIFFICULTY BREATHING RESULTING IN A PANIC ATTACK History of tooth extraction Hx of tonsillectomy History of cholecystectomy Family History Father Prostate cancer Family history of diabetes mellitus Mother Family history of diabetes mellitus Other No significant family history Denies family history of Ovarian cancer Myocardial infarction Breast cancer Colorectal cancer Social History Smoking Status: Never smoker Second Hand Exposure: No; Do You Dip or Chew Tobacco: No; Hx Alcohol Use: Yes Alcohol type: wine Alcohol Intake Frequency Comment: Occasional Hx Substance Use: No Preferred Language: Amharic Communication Ability: Effective Visual Impairment: Diminished Hearing Ability: Normal Supervisor Required: No Beliefs That Will Affect Care: None marital status: marrried Current Living Situation: Spouse current occupational status: employed How many Children do You have: 2 Feels Safe at Home: Yes Childhood Exposure to Second-Hand Smoke: No caffeine: Yes Dental Care, Regularly: Yes Physical Activity Frequency: 5-6 Times per Week Seatbelt Use: always Sunscreen Use: Yes Assistive Devices: None Review of Systems Review of Systems: See HPI above Physical Exam Physical Exam: General: no acute distress; anxious; non-toxic appearing; well-nourished; cooperative HEENT: normocephalic, atraumatic; no scleral icterus; PERRLA w/ EOMs intact; moist mucus membrane; vision and hearing grossly intact; patient demonstrates ability to protrude and wiggle tongue bilaterally; sensation intact in the face bilaterally measured via light touch at 3 dermatomes; mild facial droop on smiling; patient demonstrates ability to raise eyebrows bilaterally Neck: supple; no JVD; no lymphadenopathy; trachea midline; patient demonstrates ability to shrug shoulders against resistance without pain or deficits Skin: warm, dry without signs of tenting; no cyanosis; no rashes, bruising, lesions, or erythema noted CV: chest wall NTP; RRR; S1/S2 normal; no murmurs/rubs/gallops; pulses intact and symmetric at radial, DP, and PT Lungs: no acute respiratory distress; symmetrical chest wall expansion; clear breath sounds across all lung rivas w/o adventitious sounds; no wheezing ABD: Soft, NTP; BS present; no rebound/guarding MSK: no tics or fasciculations; no edema noted in the LEs b/l, nonerythematous; patient demonstrates ability to wiggle toes bilaterally (both feet neurovascular intact); 4/5 strength when lifting right leg from the hip Neuro: A&Ox3; slurred speech; R-sided upper and lower extremity strength deficits; mild facial droop; + Pronator drift of right arm; sensation grossly intact in the LEs b/l Results & Data Results & Data Vital Signs (Past 12 Hours) Vital Signs Temp Pulse Pulse Resp BP BP Pulse Ox 01/22/24 11:33 87 14 01/22/24 11:20 108/72 01/22/24 11:20 95 H 13 01/22/24 11:10 85 12 94 01/22/24 11:00 80 17 92 01/22/24 10:57 83 01/22/24 10:57 84 16 154/72 H 92 01/22/24 10:56 92 01/22/24 10:55 83 17 94 01/22/24 09:52 36.8 C 93 H 18 171/93 H 94 O2 Del Method 01/22/24 11:33 01/22/24 11:20 01/22/24 11:20 01/22/24 11:10 01/22/24 11:00 01/22/24 10:57 01/22/24 10:57 Room Air 01/22/24 10:56 Room Air 01/22/24 10:55 01/22/24 09:52 Room Air Laboratory Results Abnormal lab results 01/22/24 01/22/24 Range/Units 10:09 10:14 Anion Gap 12 H (3-11) Glucose 198 H (70-99(Fasting)) mg/dl POC Glucose (other) 203 H (70-99) mg/dl POC Ioniz Calcium Obdulia 1.08 L (1.12-1.32) mmol/l Diagnostic Findings Head CT 01/22/24 10:22 CT head/brain wo con CLINICAL HISTORY: 63 years-old Female with worsening right sided weakness, recent CVA. Acute strokelike symptoms TECHNIQUE: Multiple axial CT images of the head were obtained without contrast. A dose lowering technique was utilized adhering to the principles of ALARA. CT DOSE: 547.75 mGy.cm COMPARISON: Brain MRI 01/19/2024 FINDINGS: No acute intracranial hemorrhage, midline shift, intracranial mass, hydrocephalus, or abnormal extra-axial collection. Involutional changes with chronic microvascular ischemic disease redemonstrated. Progressive cytotoxic edema noted involving the left whaley radiata/lentiform nuclear infarcts on image 16 series 2. The calvarium is intact. Hyperostosis frontalis interna. The paranasal sinuses, mastoid air cells, and middle ear cavities are clear. IMPRESSION: 1. No acute intracranial hemorrhage or midline shift. 2. Progressive cytotoxic edema noted involving the acute to subacute infarcts within the left frontal lobe whaley radiata and lentiform nucleus. ACT 112: Negative or not required by law. The above report was generated using voice recognition software. It may contain grammatical, syntax or spelling errors. Electronically signed by: Brown Deng M.D. 01/22/2024 11:01 AM Supervising Physician Co-Signing Physician Notes Patient seen and examined, chart reviewed, case discussed with Rufus Holley and I agree with the assessment and plan as above except as otherwise noted Labs and images reviewed Sissy is a 63-year-old female with past medical history of recent strokelike symptoms 01/19/2024 who presented at that time with 1 day of dysarthria and fati ana, had some dexterity difficulty in the hands bilaterally while typing, and had some word finding difficulty. ?slight facial droop at that time. Speech was fluent on admit at that time. She is not a candidate for thrombolytic therapy due to duration of sx. MRI showedL whaley radiata CVA. Echo did not show any acute abnormalities, patient refused bubble study. She was discharged on dual antiplatelet therapy and secondary management. She reports yesterday she had increased dysarthria and right upper extremity weakness and progressive weakness and inability to stand the right lower extremity. Speech seems to have worsened and she was lightheaded. tr presented for reevaluation. On admission CThead with no acute hemorrhagic conversion or midline shift, patient has progressive cytotoxic edema involving the acute to subacute infarcts in the left frontal lobe whaley radiata. She is normotensive on admission. Patient seen at bedside continues to have facial droop extremity weakness. No aphasia, however patient does have significant increase in speech latency. Nontoxic-appearing. Normotensive at bedside. Case was discussed with neurology, agree with continuing permissive hypertension for a prolonged period and current antiplatelet therapy. PT/OT consulted, patient continued on secondary management. DM control switched to insulin while inpatient. PG Care Time/CCT Total # of Minutes Spent Total Time Spent with Patient: Total time spent is greater than 50% in coordination of care (as documented) at patient's floor/unit and/or counseling patient: C[place] [address] INT INP/OBS CARE 375MIN Patient Type Established History Comprehensive Exam Comprehensive Medical Decision Making High Complexity Diagnoses Ischemic stroke I63.9 Uncontrolled diabetes mellitus with hyperglycemia, with long-term current use of insulin E11.65; Z79.4 HTN (hypertension), benign I10 Hyperlipidemia E78.5 Seizure disorder G40.909
[2024-01-22 12:31] LABS: Basophils # (auto) 0.05 K/uL (0.00-0.20); Basophils % (auto) 0.4 %; Eosinophils # (auto) 0.02 K/uL (0.00-0.50); Eosinophils % (auto) 0.2 %; Hematocrit (blood only) 42.7 % (37.0-47.0); Hemoglobin 13.6 g/dl (12.0-16.0); Immature Granulocytes # (auto) 0.07 K/uL (0.01-0.20); Immature Granulocytes % (auto) 0.5 %; Lymphocytes # (auto) 1.81 K/uL (1.20-3.40); Lymphocytes % (auto) 14.2 %; Mean Corpuscular Hemoglobin 27.7 pg (25.0-34.0); Mean Corpuscular Hgb Conc 31.9 g/dL (32.0-36.0); Mean Platelet Volume 10.3 fL (9.4-12.4); Monocytes # (auto) 0.75 K/uL (0.11-0.59); Monocytes % (auto) 5.9 %; Neutrophils # (auto) 10.04 K/uL (1.40-6.50); Neutrophils % (auto) 78.8 %; Platelet Count 365 K/uL (130-400); RDW Coefficient of Variation 12.4 % (11.5-14.5); RDW Standard Deviation 39.7 fL (36.4-46.3); Red Blood Count 4.91 M/uL (4.20-5.40); White Blood Count 12.74 K/ul (4.8-10.8)
[2024-01-22 12:35] LABS: Potassium 3.7 mmol/L (3.5-5.1)
[2024-01-22] MEDS ORDERED: PHARMACIST DISCHARGE MED REC CONSULT PRN (12:41)
[2024-01-22] MEDS: LORazepam 1 MG/1 ML SYR ED Inj Use ONE (13:36)
[2024-01-22] MEDS: LORazepam 0.5 MG in SYRINGE 0.25 ML IV STA (13:36)
--- NOTE | 2024-01-22 14:13 | Magnetic Resonance Report ---
MRI OF THE BRAIN WITHOUT CONTRAST CLINICAL HISTORY: Progressive cytotoxic edema on head CT COMPARISON STUDY: MRI of the brain January 19, 2024. Head CT performed earlier today. TECHNIQUE: Utilizing a 1.5 Erin magnet and dedicated coil, multiplanar, multiecho imaging of the bra in was performed without IV contrast. FINDINGS: There has been increase in extent of the acute infarct within the left whaley radiata since MRI of January 19, 2024. This now measures 2.3 x 0.8 cm. Associated T2 hyperintensity has increased. T his represents cytotoxic edema. There is no mass effect. There is no evidence for hemorrhagic version . No additional acute infarcts are present. Ventricular system is stable. Basal cisterns are patent. There are no extra-axial collections. Flow-voids for the major intracranial vessels are present. Scat tered white matter T2 hyperintense foci are unchanged and represent small vessel disease. IMPRESSION: Increase in extent of the 2.3 x 0.8 cm acute infarct within left whaley radiata, as desc ribed above, since MRI of January 19, 2024. No mass effect. No hemorrhagic conversion. ACT 112: Negative or not required by law. Electronically signed by: Piyush Rodriguez M.D. 01/22/2024 2:11 PM
[2024-01-22] MEDS ORDERED: GLUCOSE 10 TAB/TUBE PO PRN (15:36)
[2024-01-22] MEDS ORDERED: ONDANSETRON INJ 2 MG/ML 2 ML VIAL IV PRN (15:36)
[2024-01-22] MEDS ORDERED: LABETALOL HCL IV 5 MG/ML 20ML IV PRN (15:36)
[2024-01-22] MEDS ORDERED: PHARMACY GLYCEMIC MGMT CONSULT PRN (15:36)
[2024-01-22] MEDS ORDERED: ACETAMINOPHEN 325 MG TAB PO PRN (15:36)
[2024-01-22] MEDS ORDERED: GLUCOSE 40% GEL 15 GM TUBE PO PRN (15:36)
[2024-01-22] MEDS ORDERED: DEXTROSE 50% 50 ML SYRINGE IV PRN (15:36)
[2024-01-22] MEDS ORDERED: CARBOHYDRATES FOR HYPOGLYCEMIA PO PRN (15:36)
[2024-01-22] MEDS ORDERED: GLUCAGON FOR INJ 1 MG VIAL SQ PRN (15:36)
[2024-01-22 17:39] LABS: Appearance Urine Clear (Clear); Bilirubin Urine Negative (Negative); Blood Urine Negative (Negative); Color Urine Dark Yellow; Glucose Urine UA Trace (Negative); Ketones Urine 2+ (Negative); Leukocyte Esterase Urine Negative (Negative); Nitrite Urine Negative (Negative); Protein Urine Negative (Negative); Specific Gravity Urine 1.027 (1.000-1.030); Urobilinogen Urine Negative (Negative); pH Urine 5.5 (4.5-7.5)
[2024-01-22] MEDS: INSULIN ASPART PER UNIT CHARGE SC SCH (18:40)
[2024-01-22] MEDS: carBAMazepine XR 200 MG TABCR PO SCH (20:57)
[2024-01-22] MEDS: LANTUS PER UNIT CHARGE SQ SCH (20:59)
[2024-01-23] MEDS: CLOPIDOGREL BISULFATE 75 MG TAB PO SCH (07:33)
[2024-01-23] MEDS: ATORVASTATIN 40 MG TAB PO SCH (07:34)
[2024-01-23] MEDS: lisinopril 2.5 MG TAB PO SCH (07:37)
[2024-01-23] MEDS: ASPIRIN 81 MG ECTAB PO SCH (07:38)
--- NOTE | 2024-01-23 07:58 | Electrocardiogram Report ---
Test Reason : Blood Pressure : / mmHG Vent. Rate : 082 BPM Atrial Rate : 082 BPM P-R Int : 154 ms QRS Dur : 076 ms QT Int : 388 ms P-R-T Axes : 040 -03 033 degrees QTc Int : 453 ms Normal sinus rhythm Normal ECG When compared with ECG of 19-JAN-2024 12:00, No significant change was found Confirmed by Michael Fenton ([id number]) on 01/23/2024 7:57:43 AM Referred By: REFERRED SELF Confirmed By:Michael Fenton
[2024-01-23 09:19] LABS: Basophils # (auto) 0.05 K/uL (0.00-0.20); Basophils % (auto) 0.5 %; Eosinophils # (auto) 0.05 K/uL (0.00-0.50); Eosinophils % (auto) 0.5 %; Hematocrit (blood only) 42.5 % (37.0-47.0); Hemoglobin 13.8 g/dl (12.0-16.0); Immature Granulocytes # (auto) 0.06 K/uL (0.01-0.20); Immature Granulocytes % (auto) 0.6 %; Lymphocytes # (auto) 2.13 K/uL (1.20-3.40); Lymphocytes % (auto) 20.3 %; Mean Corpuscular Hemoglobin 28.4 pg (25.0-34.0); Mean Corpuscular Hgb Conc 32.5 g/dL (32.0-36.0); Mean Corpuscular Volume 87.4 fL (80.0-100.0); Monocytes # (auto) 0.72 K/uL (0.11-0.59); Monocytes % (auto) 6.9 %; Neutrophils # (auto) 7.47 K/uL (1.40-6.50); Neutrophils % (auto) 71.2 %; Platelet Count 338 K/uL (130-400); RDW Coefficient of Variation 12.3 % (11.5-14.5); RDW Standard Deviation 39.6 fL (36.4-46.3); Red Blood Count 4.86 M/uL (4.20-5.40); White Blood Count 10.48 K/ul (4.8-10.8)
[2024-01-23 09:31] LABS: BUN Creatinine Ratio 13.4 (10-20); Calcium 9.2 mg/dl (8.6-10.3); Creatinine Clr Calc Pharmacy 104.1 ml/min; Est GFR (African American) 109.2 ml/min; Est GFR (Non-African American) 94.2 ml/min; Potassium 3.7 mmol/L (3.5-5.1)
--- NOTE | 2024-01-23 11:08 | Neurology Consultation ---
Date of Consultation January 23, 2024 Assessment & Plan (1) Ischemic stroke: History of Present Illness Attending Physician: Cesia Gill MD History of Present Illness pt this morning alert and not in distress. rt side weakness including face. mri brain noted for expension of her recent ischemic stroke. no bleeding. admission HPI:Sissy is a 63-year-old female with PMH of T2DM, seizure disorder, HLD, postherpetic neuralgia, HTN, and recent left-sided ischemic stroke diagnosed on 01/18. Patient presented for worsening of her strokelike symptoms after hospital discharge. When she was seen in the ED on 01/18, she exhibited slow, paused speech and reported that she was having trouble saying words even though she was able to think of them. She also reported brain fog at this time and decreased hand dexterity when typing. Please see H&P on 01/18 for additional details. She was discharged on 01/19 on DAPT x 3 weeks and atorvastatin for her new left-sided ischemic stroke. Upon return to the ED, she has notable decreased right-sided deficits, slurred speech, and facial droop. She reports this has been worsening since her discharge. She reports that she took all of her regular morning medications, but has not had any insulin today. Her brain fog has continued, and she notes that her right hand dexterity has worsened (such as regularly dropping her phone). She also notes that her right leg gave out at her at home yesterday and she went down on her bed; no fall; no head strike. She reports she has been taking her aspirin and Plavix as prescribed. Patient is hypertensive at 159/118 at time of admission; vitals otherwise stable. Allergies Allergy/AdvReac Type Severity Reaction Status Date / Time No Known Allergies Allergy Mild Verified 01/21/24 10:12 Home Medications Medication Instructions Recorded Confirmed Type cyanocobalamin (vitamin B-12) 1,000 mcg PO DAILY #30 tabs 09/09/19 01/22/24 History 1,000 mcg tablet,extended release acetaminophen 325 mg tablet 650 mg PO QID PRN Pain 08/02/20 01/22/24 History (Tylenol) cholecalciferol (vitamin D3) 125 125 mcg PO DAILY 01/01/22 01/22/24 History mcg (5,000 unit) capsule pen needle, diabetic 32 gauge x #400 ea 10/04/22 03/14/24 Rx 1/4" (Novofine 32) blood sugar diagnostic (OneTouch #10 ea 01/07/23 01/21/24 History Ultra Blue Test Strip) flash glucose sensor (FreeStyle 01/07/23 01/21/24 History Brianda 2 Sensor kit) lancets 33 gauge (OneTouch Delica 01/07/23 01/21/24 History Lancets) carbamazepine 200 mg 200 mg PO BID #180 caps 01/26/23 01/22/24 Rx capsule,extended release [id number] metformin 1,000 mg tablet 1,000 mg PO BID #180 tabs 07/28/23 01/22/24 Rx dulaglutide 4.5 mg/0.5 mL 4.5 mg subcut WK 01/19/24 01/22/24 History subcutaneous pen injector (Trulicity) insulin aspart U-100 100 unit/mL 0 sliding scale dose subcut TIDM 01/19/24 01/22/24 History (3 mL) subcutaneous pen (Novolog FlexPen U-100 Insulin aspart) aspirin 81 mg tablet,delayed 81 mg PO QAM #90 tabs 01/20/24 01/22/24 Rx release atorvastatin 40 mg tablet 40 mg PO QAM #30 tabs 01/20/24 01/22/24 Rx clopidogrel 75 mg tablet 75 mg PO QAM #20 tabs 01/20/24 01/22/24 Rx insulin glargine U-300 conc 300 56 unit (0.1867 mL) subcut DAILY 01/20/24 01/22/24 Rx unit/mL (3 mL) subcutaneous pen #6 mL (Toujeo Max U-300 SoloStar) lisinopril 2.5 mg tablet 2.5 mg PO DAILY #30 tabs 01/20/24 01/22/24 Rx Patient History Medical History Uncontrolled diabetes mellitus with hyperglycemia, with long-term current use of insulin Obesity (BMI 30-39.9) HTN (hypertension), benign Ischemic stroke Complex renal cyst US [address] 07/2020, CT Renal ordered 05/2023. No change. no further testing Gastritis Chronic back pain MID/LEFT BACK PAIN Cyst FOUND ON KIDNEY (RECENT FINDING) History of skin cancer History of herpes zoster Hyperlipidemia Seizure disorder EPILEPSY-LAST EVENT OVER 16 YEARS AGO Surgical History History of anesthesia reaction WITH HOLGER>DIFFICULTY BREATHING RESULTING IN A PANIC ATTACK History of tooth extraction Hx of tonsillectomy History of cholecystectomy Family History Father Prostate cancer Family history of diabetes mellitus Mother Family history of diabetes mellitus Other No significant family history Denies family history of Ovarian cancer Myocardial infarction Breast cancer Colorectal cancer Social History Smoking Status: Never smoker Second Hand Exposure: No; Do You Dip or Chew Tobacco: No; Hx Alcohol Use: Yes Alcohol type: wine Alcohol Intake Frequency Comment: Occasional Hx Substance Use: No Preferred Language: Italian Communication Ability: Effective Visual Impairment: Diminished Hearing Ability: Normal Airplane Electrician Required: No Beliefs That Will Affect Care: None marital status: marrried Current Living Situation: Spouse current occupational status: employed How many Children do You have: 2 Feels Safe at Home: Yes Childhood Exposure to Second-Hand Smoke: No caffeine: Yes Dental Care, Regularly: Yes Physical Activity Frequency: 5-6 Times per Week Seatbelt Use: always Sunscreen Use: Yes Assistive Devices: None Review of Systems Review of Systems: All systems reviewed & are unremarkable except as noted in Subjective Constitutional: as per Subjective / HPI Eyes: as per Subjective / HPI Ear, Nose, Mouth, Throat: as per Subjective / HPI Respiratory: as per Subjective / HPI Cardiovascular: as per Subjective / HPI Gastrointestinal: as per Subjective / HPI Musculoskeletal: as per Subjective / HPI Integumentary: as per Subjective / HPI Neurologic: as per Subjective / HPI Psychiatric: as per Subjective / HPI Endocrine: as per Subjective / HPI Hematologic / Lymphatic: as per Subjective / HPI Allergy / Immunological: as per Subjective / HPI Exam (Neuro) Physical Exam: HEENT: normocephalic Neuro: Mental: AOx4, fluent speech, normal comprehension, no apraxia, no L/R confusion, no neglect CN: PERRL, Full EOM, rt face droop (lower face) , intact sensation t/o face, midline T/U/P, Motor: No abnormal movements, normal tone and bulk, 5/5 t/o left side. RUE; 4+/5 proximally, 4-/5 distally, RLE: 4/5 proximally and 4+/5 distally t/o. Sens: intact to touch b/l grossly Coord: intact FNT b/l Gait: intact grossly with walker. Impression: 63 yo female with left subcortical ischemic stroke recently with expansion of existing stroke area causing rt hemiparesis. Recommendations: 1. Standard stroke care as now. 2. 4. Permissive Hypertension for next 24. Keep SBP goal range less than 220. Avoid hypotension. Do not stop beta-akil if on it. 6. Long-term SBP goal less than 130. 7. Plenty of hydration including IV flui d if possible (use isotonic solution) . Avoid hypovolemia and hypotension. 8. Initiate DVT prevention therapy. 9. Avoid hypoglycemia, serum glucose goa l during hospitalization: 140-180. 10. Long-term HgA1c goal less than 7. 15. Fall precaution 16. Consult physical and occupational th erapy and speech path evaluation. pt may need short term rehab pending Physical therapy recommendation. not much to add at this point. continue supportive care as now. continue DAPT. Chart reviewed I have spent more than 50% educating patient about potential diagnosis and neurological evaluation and coordinating care with patient's treatment team. Total time spent (including chart review and coordination of care): 60 min (this includes chart review). Results & Data Vital Signs (Past 12 Hours) Vital Signs Temp Pulse Pulse Resp BP Pulse Ox O2 Del Method 01/23/24 08:00 Room Air 01/23/24 08:00 74 01/23/24 07:37 37.0 C 69 18 126/80 100 Room Air 01/23/24 03:13 36.5 C 85 21 157/101 H 97 Room Air PG Care Time/CCT Total # of Minutes Spent Total Time Spent with Patient: Total time spent is greater than 50% in coordination of care (as documented) at patient's floor/unit and/or counseling patient: Coding Level of Care Code 18281 IN/OBS CONSULT LVL 4,60M Diagnoses Ischemic stroke I63.9
--- NOTE | 2024-01-23 13:29 | Pharmacy Report ---
Pharmacy Glycemic Short Note 2 - Date of Service January 23, 2024 - Glycemic Short BSG Results (Last 24 hours): 01/22/24 01/22/24 01/23/24 16:10 20:20 07:09 Glucose POC Glucose 149 H 156 H 113 H 01/23/24 01/23/24 08:48 11:16 Glucose 138 H POC Glucose 133 H OUTPATIENT ANTIDIABETIC REGIMEN: * Toujeo U-300 56 units daily; Novolog SSI TIDM up to 75 units; metformin 1 gm BId, Trulicity weekly * A1c 10.2 01/20/24 ASSESSMENT: * Patient admitted with worsening CVA symptoms, previously admitted 01/18 * Insulin was initiated with same parameters as last admission, ~weight based stress 2 basal and looser novolog parameters * Will monitor with current parameters PLAN FOR INPATIENT GLYCEMIC CONTROL: * Hold outpatient oral diabetes medications * Basal insulin * Lantus 15 units SQ BID * Bolus insulin * NovoLog per scale ACHS or Q6hrs while NPO * Goal Range: Low 110 mg/dL - High 140 mg/dL * Correction Factor: 40 mg/dL/unit * Nutritional / Prandial insulin per carb ratio of 1 unit per 13 grams CHO consumed
--- NOTE | 2024-01-23 18:17 | Hospitalist Progress Note ---
Date of Service January 23, 2024 Assessment & Plan (1) Ischemic stroke: Plan: Patient with recent left whaley radiata stroke admitted and then discharged on 01/19 on dual antiplatelet therapy and high intensity statin, started low-dose lisinopril for hypertension She Returns this admission with significantly increased weakness in the RUE- mostly distal, mild weakness in RLE, right-sided facial droop, and ongoing dysarthria Head CT w/ progressive cytotoxic edema involving the acute to subacute infarct from previous Brain MRI 01/21 shows increase in extent of acute infarct in left whaley radiata since previous MRI on 01/18, now measuring 2.3 x 0.8 cm representing cytotoxic edema, no mass effect, no hemorrhagic conversion, no new strokes EKG NSR at 82 bpm; QTc 453 No history of A-fib and no arrhythmias on telemetry-outpatient 30-day event monitor was already arranged at last admission Lipids and hemoglobin A1c checked last admission and has significantly uncontrolled diabetes with hemoglobin A1c 10.2% Continue high intensity statin started last admission TSH WNL Echo on 01/19 normal and patient had declined bubble study Continue permissive HTN in the setting of worsening stroke symptoms; labetalol 5 mg IV on-call as needed for SBP>220 or DBP>120 Continue neurochecks q4h Speech therapy consult, PT/OT consults appreciated-recommends rehab Continue DAPT with aspirin and Plavix x 3 weeks, then aspirin monotherapy alone to begin on 02/09 Neurology consult appreciated-continue permissive hypertension, IV fluids if needed for hydration, no other changes (2) Uncontrolled diabetes mellitus with hyperglycemia, with long-term current use of insulin: Plan: Last A1c at 10.2% on 01/20/2024-patient admits to noncompliance at home but is now committed to better control of her diabetes Hold metformin, Trulicity from home Patient is normally on 56 units daily HS of insulin glargine-an increase at last admission She is on Lantus 15 u BID while inpatient with NovoLog sliding scale and requiring minimal amounts at this point T2DM diet BSG ACHS Adjust regimen as needed (3) HTN (hypertension), benign: Plan: Permissive HTN (as above) Continue low-dose lisinopril, will need to be titrated over the next few days after permissive hypertension timeframe is over (4) Hyperlipidemia: Plan: Continue atorvastatin (5) Seizure disorder: Plan: Epilepsy with last known incidence 25 years ago Continue carbamazepine Plan Disposition: Continued stay on PCU telemetry, but needs acute rehab-case management consult placed Full code VTE PPx: SCDs (hold chemical DVT PPx in the setting of worsening stroke symptoms and progressive cytotoxic edema) I discussed her care with her on the phone at the patient's request Admission and Anticipated Discharge Date Admission Date: January 22, 2024 Subjective Patient with ongoing right-sided weakness and facial droop, speech difficulties. She is frustrated with how much worse she got since discharge previously. No headache. Telemetry with normal sinus rhythm with rates in the 70s to 90s Physical Exam Constitutional: WD/WN, vitals as above Eyes: PERRL, conjunctivae normal, anicteric sclerae ENMT: external ear and nose normal, oropharynx normal Neck: trachea midline, no thyromegaly Respiratory: normal respiratory effort, lungs clear to auscultation Cardiovascular: RRR, no murmur, no edema Chest (Breasts): Chest: normal inspection of chest Gastrointestinal (Abdomen): normal bowel sounds, soft, nontender, no hepatosplenomegaly Musculoskeletal: Extremities: extremities normal to inspection; no cyanosis and no clubbing Skin: no rashes, warm and dry Neurologic: + focal motor deficit (3/5 right UE dist al strength, 4/5 proximal, 4/5 RLE strength, otherwise 5/5); + CN's not intact (Intact except right-sided facial droop) Motor/Sensory: no tremor and no sensory deficit Psychiatric: A+Ox3, euthymic affect Lymphatic: no lymphedema Results & Data Results & Data Vital Signs (Past 12 Hours) Vital Signs Temp Pulse Pulse Resp BP Pulse Ox O2 Del Method 01/23/24 15:47 95 H 01/23/24 15:24 36.7 C 82 20 149/90 H 93 Room Air 01/23/24 11:38 36.8 C 101 H 18 133/80 95 Room Air 01/23/24 08:00 Room Air 01/23/24 08:00 74 01/23/24 07:37 37.0 C 69 18 126/80 100 Room Air Laboratory Results No labs PG Care Time/CCT Total # of Minutes Spent Total Time Spent with Patient: Total time spent is greater than 50% in coordination of care (as documented) at patient's floor/unit and/or counseling patient: Coding Level of Care Code 41741 SUB INP/OBS CARE MIN Diagnoses Ischemic stroke I63.9 Uncontrolled diabetes mellitus with hyperglycemia, with long-term current use of insulin E11.65; Z79.4 HTN (hypertension), benign I10 Hyperlipidemia E78.5 Seizure disorder G40.909
[2024-01-24] MEDS: LANTUS PER UNIT CHARGE SQ SCH (09:45)
--- NOTE | 2024-01-24 11:11 | Neurology Progress Note ---
Date of Service January 24, 2024 Assessment & Plan (1) Ischemic stroke: Admission and Anticipated Discharge Date Admission Date: January 22, 2024 Subjective pt about the same. no change in exam. NAD. Results & Data Vital Signs (Past 12 Hours) Vital Signs Temp Pulse Pulse Resp BP Pulse Ox O2 Del Method 01/24/24 08:35 92 H 01/24/24 08:05 Room Air 01/24/24 07:55 36.6 C 80 18 171/81 H 91 Room Air 01/24/24 03:00 36.7 C 83 15 144/80 H 97 Room Air Exam (Neuro) Physical Exam: HEENT: normocephalic Neuro: Mental: AOx4, fluent speech, normal comprehension, no apraxia, no L/R confusion, no neglect CN: PERRL, Full EOM, rt face droop (lower face) , intact sensation t/o face, midline T/U/P, Motor: No abnormal movements, normal tone and bulk, 5/5 t/o left side. RUE; 4+/5 proximally, 4-/5 distally, RLE: 4/5 proximally and 4+/5 distally t/o. Coord: intact with left arm. Gait: intact grossly with walker. Impression: 63 yo female with left subcortical ischemic stroke recently with expansion of existing stroke area causing rt hemiparesis. No change in exam. Poorly controlled diabetes with pt's noncompliance likely contributed to the progression of stroke. Recommendations: 1. no longer need permissive HTN. go ahe ad and restart HTN meds. 6. Long-term SBP goal less than 130. 7. . Avoid hypovolemia and hypotension. 8 9. Avoid hypoglycemia, serum glucose goa l during hospitalization: 140-180. 10. Long-term HgA1c goal less than 7. 15. Fall precaution 16. planning for rehab. no new recommendations. call again if new question. Chart reviewed I have spent more than 50% educating patient about potential diagnosis and neurological evaluation and coordinating care with patient's treatment team. Total time spent (including chart review and coordination of care): 40 min (this includes chart review). PG Care Time/CCT Total # of Minutes Spent Total Time Spent with Patient: Total time spent is greater than 50% in coordination of care (as documented) at patient's floor/unit and/or counseling patient: Coding Level of Care Code 96026 SUB INP/OBS CARE MIN Diagnoses Ischemic stroke I63.9
--- NOTE | 2024-01-24 19:13 | Hospitalist Progress Note ---
Date of Service January 24, 2024 Assessment & Plan (1) Ischemic stroke: Plan: Patient with recent left whaley radiata stroke admitted with mild dysarthria and right hand weakness- discharged on 01/19 on dual antiplatelet therapy and high intensity statin, started low-dose lisinopril for hypertension Returns this admission with significantly increased weakness in the RUE-mostly distal, mild weakness in RLE, right-sided facial droop, and ongoing worsening dysarthria Head CT w/ progressive cytotoxic edema involving the acute to subacute infarct from previous Brain MRI 01/21 shows increase in extent of acute infarct in left whaley radiata since previous MRI on 01/18, now measuring 2.3 x 0.8 cm representing cytotoxic edema, no mass effect, no hemorrhagic conversion, no new strokes EKG NSR at 82 bpm; QTc 453 No history of A-fib and no arrhythmias on telemetry-outpatient 30-day event monitor was already arranged at last admission With uncontrolled diabetes HgbA1c 10.2% Lipids good-Continue high intensity statin started last admission TSH WNL Echo on 01/19 normal and patient had declined bubble study Neurology consult appreciated-continue permissive hypertension, IV fluids if needed for hydration, no other changes to medications started last admission Continue permissive HTN in the setting of worsening stroke symptoms, but will now begin to lower BP further-increase lisinopril to 5mg daily Continue neurochecks [id number] remain on tele for this Speech therapy consult, PT/OT consults appreciated-recommends rehab Continue DAPT with aspirin and Plavix x 3 weeks, then aspirin monotherapy alone to begin on 02/09 Continue atorvastatin Has 30 day cardiac event monitor already ordered from last admission (2) Uncontrolled diabetes mellitus with hyperglycemia, with long-term current use of insulin: Plan: Last A1c at 10.2% on 01/20/2024-patient admits to noncompliance at home but is now committed to better control of her diabetes Hold metformin, Trulicity from home Patient is normally on 56 units daily HS of insulin glargine-an increase at last admission She is on Lantus 13 u BID while inpatient with NovoLog sliding scale and requiring much lower doses here than at home T2DM diet BSG ACHS Adjust regimen as needed (3) HTN (hypertension), benign: Plan: Permissive HTN (as above) and BPs remain elevated-now 5 days out from previous stroke-will begin to gently lower BP further increase lisinopril to 5mg daily (4) Hyperlipidemia: Plan: Continue atorvastatin (5) Seizure disorder: Plan: Epilepsy with last known incidence 25 years ago Continue carbamazepine Plan Disposition: Continued stay on PCU telemetry, but needs acute rehab-case management consult placed-awaiting approval from [facility] Full code VTE PPx: SCDelizabeth I discussed her care with her on the phone on 01/22 Admission and Anticipated Discharge Date Admission Date: January 22, 2024 Subjective Still quite weak in her right hand and some in the right leg, almost buckling with standing/walking and remains with significant dysarthria which improves if she slows down her speech. Otherwise is eating today, took a shower with assistance. Tele with NSR, normal rates Physical Exam Constitutional: WD/WN, vitals as above Eyes: PERRL, conjunctivae normal, anicteric sclerae EOM intact bilaterally ENMT: external ear and nose normal, oropharynx normal Neck: trachea midline, no thyromegaly Respiratory: normal respiratory effort, lungs clear to auscultation Cardiovascular: RRR, no murmur, no edema Chest (Breasts): Chest: normal inspection of chest Gastrointestinal (Abdomen): normal bowel sounds, soft, nontender, no hepatosplenomegaly Musculoskeletal: Extremities: extremities normal to inspection; no cyanosis and no clubbing Skin: no rashes, warm and dry Neurologic: + focal motor deficit (3/5 right UE dist al strength, 4/5 proximal, 4/5 RLE strength, otherwise 5/5); + CN's not intact (Intact except right-sided facial droop) Motor/Sensory: no tremor and no sensory deficit Psychiatric: A+Ox3, euthymic affect Lymphatic: no lymphedema Results & Data Results & Data Vital Signs (Past 12 Hours) Vital Signs Temp Pulse Pulse Resp BP Pulse Ox O2 Del Method 01/24/24 15:40 74 01/24/24 11:40 36.7 C 76 18 158/79 H 95 Room Air 01/24/24 08:35 92 H 01/24/24 08:05 Room Air 01/24/24 07:55 36.6 C 80 18 171/81 H 91 Room Air Laboratory Results no labs PG Care Time/CCT Total # of Minutes Spent Total Time Spent with Patient: Total time spent is greater than 50% in coordination of care (as documented) at patient's floor/unit and/or counseling patient: Coding Level of Care Code 75254 SUB INP/OBS CARE MIN Diagnoses Ischemic stroke I63.9 Uncontrolled diabetes mellitus with hyperglycemia, with long-term current use of insulin E11.65; Z79.4 HTN (hypertension), benign I10 Hyperlipidemia E78.5 Seizure disorder G40.909
[2024-01-25] MEDS: lisinopril 5 MG TAB PO SCH (08:13)
[2024-01-25] MEDS: LANTUS PER UNIT CHARGE SQ SCH (08:19)
[2024-01-25 08:30] LABS: BUN Creatinine Ratio 14.8 (10-20); Creatinine Clr Calc Pharmacy 111.4 ml/min; Est GFR (African American) 112.6 ml/min; Est GFR (Non-African American) 97.2 ml/min; Potassium 3.6 mmol/L (3.5-5.1)
[2024-01-25 08:40] LABS: Basophils # (auto) 0.06 K/uL (0.00-0.20); Basophils % (auto) 0.6 %; Eosinophils # (auto) 0.09 K/uL (0.00-0.50); Eosinophils % (auto) 0.9 %; Hematocrit (blood only) 42.4 % (37.0-47.0); Hemoglobin 13.9 g/dl (12.0-16.0); Immature Granulocytes # (auto) 0.05 K/uL (0.01-0.20); Immature Granulocytes % (auto) 0.5 %; Lymphocytes # (auto) 2.46 K/uL (1.20-3.40); Lymphocytes % (auto) 24.7 %; Mean Corpuscular Hemoglobin 28.4 pg (25.0-34.0); Mean Corpuscular Hgb Conc 32.8 g/dL (32.0-36.0); Mean Corpuscular Volume 86.7 fL (80.0-100.0); Mean Platelet Volume 10.5 fL (9.4-12.4); Monocytes # (auto) 0.81 K/uL (0.11-0.59); Monocytes % (auto) 8.1 %; Neutrophils % (auto) 65.2 %; Platelet Count 334 K/uL (130-400); RDW Coefficient of Variation 12.3 % (11.5-14.5); Red Blood Count 4.89 M/uL (4.20-5.40); White Blood Count 9.97 K/ul (4.8-10.8)
--- NOTE | 2024-01-25 09:10 | Pharmacy Report ---
Pharmacy Glycemic Short Note 2 - Date of Service January 25, 2024 - Glycemic Short BSG Results (Last 24 hours): 01/24/24 01/24/24 01/24/24 11:22 16:04 19:59 Glucose POC Glucose 118 H 132 H 180 H 01/25/24 01/25/24 07:12 07:27 Glucose 141 H POC Glucose 138 H OUTPATIENT ANTIDIABETIC REGIMEN: * Toujeo U-300 56 units daily; Novolog SSI TIDM up to 75 units; metformin 1 gm BId, Trulicity weekly HbA1c 10.2% (01/20/24) ASSESSMENT: 01/25/24: * BSGs reasonable well-controlled over past 48 hours, ranging 98-180 mg/dL * Receiving ~30 units of insulin/day (primarily basal) * Fasting BSG of 138 mg/dL this morning, will increase back to 15 units BID 01/23/24: * Patient admitted with worsening CVA symptoms, previously admitted 01/18 * Insulin was initiated with same parameters as last admission, ~weight based stress 2 basal and looser novolog parameters * Will monitor with current parameters PLAN FOR INPATIENT GLYCEMIC CONTROL: * Hold outpatient oral diabetes medications * Basal insulin * Lantus 15 units SQ BID * Bolus insulin * NovoLog per scale ACHS or Q6hrs while NPO * Goal Range: Low 110 mg/dL - High 140 mg/dL * Correction Factor: 40 mg/dL/unit * Nutritional / Prandial insulin per carb ratio of 1 unit per 13 grams CHO consumed
[2024-01-25] MEDS: metFORMIN HCL 500 MG TAB PO SCH (10:49)
--- NOTE | 2024-01-25 12:30 | Hospitalist Progress Note ---
Date of Service January 25, 2024 Assessment & Plan (1) Ischemic stroke: Plan: Recent ischemic left whaley radiata CVA with resultant left facial droop, dysarthria, right hemiparesis. She remains on aspirin, Plavix, atorvastatin. Continue OT PT while hospitalized (2) Uncontrolled diabetes mellitus with hyperglycemia, with long-term current use of insulin: Plan: Last A1c at 10.2% on 01/20/2024-patient admits to noncompliance at home but is now committed to better control of her diabetes. Continue ADA diet. Metformin has been restarted. Basal insulin therapy. Sliding scale coverage as needed (3) HTN (hypertension), benign: Plan: Systolic blood pressure is slightly elevated but this is preferable than hypotension. Continue current medical management (4) Hyperlipidemia: Plan: Stable. Continue atorvastatin (5) Seizure disorder: Plan: Stable. Continue carbamazepine Plan Anticipate eventual discharge to [facility]. Admission and Anticipated Discharge Date Admission Date: January 22, 2024 Subjective Alert and oriented. No acute distress. She has dysarthria and left facial droop along with right hemiparesis, more dense involving the right upper extremity and right hand. Her usual metformin has been restarted. She remains on aspirin, Plavix, atorvastatin. Blood pressure is running a little high but is preferable to hypotension at this point. Anticipate eventual discharge to [facility] for rehab Review of Systems 2 Review of Systems: Constitutional-no fever or chills ENT-no blurred vision, no double vision, no epistaxis, no sore throat Respiratory-no cough, no wheezing, no shortness of breath Cardiac-no palpitations, no chest pain, no syncope GI-no nausea, vomiting, diarrhea, melena, hematochezia -no urinary retention, no urinary incontinence, no dysuria, no hematuria Musculoskeletal-no joint pain, no muscle tenderness Skin-no bruising, no rashes, no pruritus Neuro-left facial droop and right-sided weakness from recent ischemic CVA Psych-no depression, no anxiety Physical Exam 2 Physical Exam: General-alert and oriented x3, no fever, no chills HEENT-head atraumatic and normocephalic, pupils equal and reactive to light, extraocular muscles intact Neck-no lymphadenopathy or thyromegaly, trachea midline Chest-clear to auscultation. No rales, wheezing or rhonchi Cardiac-regular rate and rhythm, normal S1 and S2 Abdomen-normal bowel sounds, nontender, no hepatosplenomegaly Extremities-no cyanosis, clubbing, or edema Neuro-left facial droop, dysarthria, right hemiparesis more dense in the right upper extremity than right lower leg Psych-normal affect, normal mood Results & Data Results & Data Vital Signs (Past 12 Hours) Vital Signs Temp Pulse Pulse Resp BP BP Pulse Ox 01/25/24 11:02 70 18 103/64 99 01/25/24 10:50 16 159/83 H 159/83 H 93 01/25/24 07:51 37.0 C 78 18 159/84 H 95 01/25/24 07:36 68 01/25/24 07:14 01/25/24 03:23 36.5 C 77 16 147/77 H 96 O2 Del Method 01/25/24 11:02 Room Air 01/25/24 10:50 Room Air 01/25/24 07:51 Room Air 01/25/24 07:36 01/25/24 07:14 Room Air 01/25/24 03:23 Room Air Laboratory Results 01/25/24 07:27 01/25/24 07:27 PG Care Time/CCT Total # of Minutes Spent Total Time Spent with Patient: Total time spent is greater than 50% in coordination of care (as documented) at patient's floor/unit and/or counseling patient: Coding Level of Care Code 03211 SUB INP/OBS CARE 3/50MIN Diagnoses Ischemic stroke I63.9 Uncontrolled diabetes mellitus with hyperglycemia, with long-term current use of insulin E11.65; Z79.4 HTN (hypertension), benign I10 Hyperlipidemia E78.5 Seizure disorder G40.909
--- NOTE | 2024-01-26 15:14 | Discharge Summary ---
Date of Service January 26, 2024 Admission HPI Per Admitting Provider Sissy is a 63-year-old female with PMH of T2DM, seizure disorder, HLD, postherpetic neuralgia, HTN, and recent left-sided ischemic stroke diagnosed on 01/18. Patient presented for worsening of her strokelike symptoms after hospital discharge. When she was seen in the ED on 01/18, she exhibited slow, paused speech and reported that she was having trouble saying words even though she was able to think of them. She also reported brain fog at this time and decreased hand dexterity when typing. Please see H&P on 01/18 for additional details. She was discharged on 01/19 on DAPT x 3 weeks and atorvastatin for her new left-sided ischemic stroke. Upon return to the ED, she has notable decreased right-sided deficits, slurred speech, and facial droop. She reports this has been worsening since her discharge. She reports that she took all of her regular morning medications, but has not had any insulin today. Her brain fog has continued, and she notes that her right hand dexterity has worsened (such as regularly dropping her phone). She also notes that her right leg gave out at her at home yesterday and she went down on her bed; no fall; no head strike. She reports she has been taking her aspirin and Plavix as prescribed. Patient is hypertensive at 159/118 at time of admission; vitals otherwise stable. ED course: NSS 1000 mL IV ROS: Patient endorses dizziness/lightheadedness, mild facial droop, right-sided UE and LE weakness, and slurred speech. Patient denies fever, chills, nightsweats, bodyaches, ANDERSON, changes in vision, chest pain, SOB, abdominal pain, N/V/D, L-sided weakness, numbness/tingling/pain in either arm or leg bilaterally. Principal Diagnosis Ischemic left CVA with right hemiparesis Discharge Exam General-alert and oriented x3, no fever, no chills HEENT-head atraumatic and normocephalic, pupils equal and reactive to light, extraocular muscles intact Neck-no lymphadenopathy or thyromegaly, trachea midline Chest-clear to auscultation. No rales, wheezing or rhonchi Cardiac-regular rate and rhythm, normal S1 and S2 Abdomen-normal bowel sounds, nontender, no hepatosplenomegaly Extremities-no cyanosis, clubbing, or edema Neuro-left facial droop, dysarthria, right hemiparesis more dense in the right upper extremity than right lower leg Psych-normal affect, normal mood Discharge Data Allergies Allergy/AdvReac Type Severity Reaction Status Date / Time No Known Allergies Allergy Mild Verified 01/21/24 10:12 Consultations 01/22/24 12:11 ED Decision to Admit Stat 01/22/24 12:39 Consult Neurology Routine Ordered Studies 01/22/24 10:22 CT head/brain wo con Stat 01/22/24 12:46 MR brain wo con Stat Hospital Course (1) Ischemic stroke: Recent ischemic left [place] radi[place] CVA with presence of cytotoxic edema with resultant left facial droop, dysarthria, right hemiparesis. She remains on aspirin, Plavix, atorvastatin. Continue OT PT while hospitalized (2) Uncontrolled diabetes mellitus with hyperglycemia, with long-term current use of insulin: Last A1c at 10.2% on 01/20/2024-patient admits to noncompliance at home but is now committed to better control of her diabetes. Continue ADA diet. Metformin has been restarted. Basal insulin therapy. Sliding scale coverage as needed (3) HTN (hypertension), benign: Systolic blood pressure is slightly elevated but this is preferable than hypotension. Continue current medical management (4) Hyperlipidemia: Stable. Continue atorvastatin (5) Seizure disorder: Stable. Continue carbamazepine Plan Discharge to [facility] todayJanuary 25 Total Time Total Time Spent Total Time Spent (In Minutes): 45 minutes Discharge Plan Discharge Items Patient Disposition: Transfer Inpatient Rehab Fac Reason For Visit: WORSENING CVA SYMPTOMS Discharge Diagnosis: Ischemic left CVA with cytotoxic cerebral edema and right hemiparesis Activity: As commented below Activity Comment: Up with assistance only Non-emergency contact: Primary Care Provider Call non-emergency contact if: you have any medication questions and your symptoms worsen Follow-up/Referrals: Mikael Harrington, [Primary Care Provider] - Diet: Carb Consistent or DM2 Addtl Attending Provider Instructions: Take medications as directed. See primary care provider soon as possible after discharge from [facility] Pending Studies at Discharge: No Stand-Alone Forms: My [facility] [employer], Medications to Prevent Stroke Skilled Items Patient informed of condition?: Yes DNR: No Discharge Level of Care: Acute rehab Communicable Disease: No Discharge Prognosis: Stable Lines: None Urinary Catheter: No Medications and DC Order Prescriptions: Continued (DME) pen needle, diabetic [Novofine 32] 32 gauge x 1/4" needle See Dose Instructions .ROUTE .MEDSUPPLY Qty: 400 3RF Rx Instructions: Use four times daily metformin 1,000 mg tablet 1,000 mg PO BID Qty: 180 3RF Hold Instructions: Resume on 01/21/24. Hold due to an interaction with the contrast dye you received on 01/19/24 carbamazepine 200 mg capsule, ER multiphase 12 hr 200 mg PO BID Qty: 180 3RF cholecalciferol (vitamin D3) 125 mcg (5,000 unit) capsule 125 mcg PO DAILY cyanocobalamin (vitamin B-12) 1,000 mcg tablet extended release 1,000 mcg PO DAILY Qty: 30 (DME) OneTouch Ultra Blue Test Strip Strip See Rx Instructions .ROUTE .MEDSUPPLY Qty: 10 Rx Instructions: Test blood sugar once daily PRN (DME) FreeStyle Brianda 2 Sensor Kit See Rx Instructions .Route Rx Instructions: Change sensor every 14 days (DME) lancets [OneTouch Delica Lancets] 33 gauge misc See Rx Instructions .ROUTE .MEDSUPPLY Rx Instructions: Test blood sugar once daily PRN acetaminophen [Tylenol] 325 mg Tablet 650 mg PO QID PRN (Reason: Pain) insulin aspart U-100 [Novolog FlexPen U-100 Insulin] 100 unit/mL (3 mL) insulin pen 0 sliding scale dose SQ TIDM MDD 75 UNITS/24 HOURS. Rx Instructions: 75 units subcut inject daily with meals per sliding scale up to TDD 75 units; Trulicity 4.5 mg/0.5 mL pen injector 4.5 mg subcut WK Rx Instructions: MONDAYS atorvastatin 40 mg Tablet 40 mg PO QAM Qty: 30 0RF clopidogrel 75 mg Tablet 75 mg PO QAM Qty: 20 0RF aspirin 81 mg Tablet,Delayed Release (Dr/Ec) 81 mg PO QAM Qty: 90 0RF lisinopril 2.5 mg tablet 2.5 mg PO DAILY Qty: 30 0RF insulin glargine U-300 conc [Toujeo Max U-300 SoloStar] 300 unit/mL (3 mL) insulin pen 56 unit subcut DAILY Qty: 6 5RF Discharge Orders: Discharge Order (Routine); Ordered 01/26/24 Ordered By: Silver Clemente Admission Data Admit Date/Time: 01/22/24 12:57 Attending Provider: Silver Clemente Admit Provider: Paul Sams Primary Care Provider: Mikael Harrington Other Providers: Paul Sams; John Lara; [facility] Coding Level of Care Code 46108 INP/OBS DISCH >30 MIN Diagnoses Ischemic stroke I63.9 Uncontrolled diabetes mellitus with hyperglycemia, with long-term current use of insulin E11.65; Z79.4 HTN (hypertension), benign I10 Hyperlipidemia E78.5 Seizure disorder G40.909
== END 2024-01-26 17:52 | DRG 64 ==
LOC: ED 09:49 → SUATTDRO 12:57 → EDINP 12:57 → 2S 14:49